=== PATIENT | male | born 1965 | race African-American/Black ===

== ENCOUNTER 2017-08-16 13:59 | Inpatient (IN) | payer MEDICARE, MEDICAID ==
[~2017-08-16] VITALS: Ht 190.5 cm; Wt 86.0 kg
[~2017-08-16 13:59] MED LIST: BENZ2TAB PO; FLUP10TA PO
[2017-08-16 14:19] VITALS: BP 128/59; PULSE 112; RESP 19; TEMP 98.3; O2SAT 97
[2017-08-16 16:01] LABS: AUTOMATED NEUTROPHIL # 7.3 TH/MM3 (1.8-7.7); BASOPHIL # 0.1 TH/MM3 (0-0.2); EOSINOPHIL # 0.2 TH/MM3 (0-0.4); EOSINOPHIL % 1.4 % (0.0-4.0); HEMATOCRIT 34.1 % (39.0-51.0); HEMOGLOBIN 12.3 GM/DL (13.0-17.0); LYMPHOCYTE # 1.8 TH/MM3 (1.0-4.8); MEAN CELL VOLUME 80.3 FL (80.0-100.0); MEAN PLATELET VOLUME 7.8 FL (7.0-11.0); MONO % 10.1 % (0.0-8.0); MONOCYTE # 1.1 TH/MM3 (0-0.9); NEUT % 70.5 % (16.0-70.0); PLATELET COUNT 301 TH/MM3 (150-450); RED BLOOD COUNT 4.25 MIL/MM3 (4.50-5.90); RED CELL DISTRIBUTION WIDTH 16.1 % (11.6-17.2); WHITE BLOOD COUNT 10.4 TH/MM3 (4.0-11.0)
[2017-08-16 16:08] LABS: ALBUMIN 3.1 GM/DL (3.4-5.0); ALT (GPT) 17 U/L (12-78); AST (GOT) 12 U/L (15-37); BICARBONATE 26.7 MEQ/L (21.0-32.0); BLOOD UREA NITROGEN 3 MG/DL (7-18); CALCIUM 8.5 MG/DL (8.5-10.1); CHLORIDE 99 MEQ/L (98-107); CREATININE 0.82 MG/DL (0.60-1.30); GLOMERULAR FILTRATION RATE 120 ML/MIN (>89); GLUCOSE,RANDOM 175 MG/DL (74-106); SODIUM (NA) 134 MEQ/L (136-145)
[2017-08-16 16:10] LABS: ALKALINE PHOSPHATASE 102 U/L (45-117); TOTAL BILIRUBIN ADULT 0.2 MG/DL (0.2-1.0); TOTAL PROTEIN 8.4 GM/DL (6.4-8.2)
[2017-08-16 16:14] LABS: MEAN CORPUSCULAR HGB CONC 36.1 % (32.0-36.0)
[2017-08-16] MEDS ORDERED: VANCOMYCIN INJ 1,000 MG in SODIUM CHLOR 0.9% 250 ML INJ 250 ML IV ONE (17:00)
[2017-08-16] MEDS ORDERED: PIPERACIL-TAZO 4.5 GM PREMIX 100 ML IV ONE (17:00)
--- NOTE | 2017-08-16 17:10 | PD ---
HPI Chief Complaint: Skin Problem Time Seen by Provider: 16:42 Travel History International Travel<30 days: No Contact w/Intl Traveler<30days: No Traveled to known affect area: No History of Present Illness HPI The patient is a 51-year-old [place] male who presents emergency department for right foot drainage, foul smell, and pain. The patient states her last 3 weeks he's had some sores on the bottom of the right foot which have been draining, now producing a foul smell. The patient does have a history of schizophrenia, recently walked the [place], [place]. He then walked back to the [place], [place]. He denies any history of diabetes, gangrene, diabetic foot ulcers, or peripheral last carotid disease. He does note decreased hair growth to legs, but states that has been chronic since childhood. He denies any previous history of sores on the right foot, does have a previous history of sore the left foot which healed on its own. Symptoms are moderate. There are currently no alleviating factors. He denies any fever, chills, or sweats. PFSH Past Medical History Blood Disorders: No Anxiety: Yes Depression: Yes Cancer: No Cardiovascular Problems: Yes Diabetes: Yes Endocrine: Yes Genitourinary: No Hypertension: Yes Immune Disorder: No Musculoskeletal: No Neurologic: No Psychiatric: Yes (paranoid schitzophrenia) Respiratory: No Past Surgical History Other Surgery: Yes (knee surgery) Social History Alcohol Use: No Tobacco Use: Yes (ppd) Substance Use: No Allergies-Medications (Allergen,Severity, Reaction): Coded Allergies: No Known Allergies (Verified Allergy, Unknown, 08/16/17) Reported Meds & Prescriptions Reported Meds & Active Scripts Active Reported Benztropine (Benztropine Mesylate) 0.5 Mg Tab 2 Mg PO BID Fluphenazine (Fluphenazine HCl) 10 Mg Tab 10 Mg PO HS Review of Systems Except as stated in HPI: all other systems reviewed are Neg General / Constitutional: No: Fever, Chills HENT: No: Lightheadedness Cardiovascular: No: Chest Pain or Discomfort Respiratory: No: Shortness of Breath Gastrointestinal: No: Nausea, Vomiting, Abdominal Pain Genitourinary: No: Dysuria Musculoskeletal: Positive: Pain Skin: Positive Other Neurologic: No: Paresthesia, Sensory Disturbance Psychiatric: Positive: Disorder of Thought, No: Substance Abuse Hematologic/Lymphatic: No: Other (denies any history diabetes) Physical Exam Narrative GENERAL: Awake, alert, pleasant 51-year-old male who appears his stated age and is in no acute respiratory distress. SKIN: Focused skin assessment warm/dry. HEAD: Atraumatic. Normocephalic. EYES: No injection or drainage. ENT: No nasal bleeding or discharge. Mucous membranes pink and moist. NECK: Trachea midline. No JVD. CARDIOVASCULAR: Regular, tachycardic with a heart rate of 110. RESPIRATORY: No accessory muscle use. Clear to auscultation. Breath sounds equal bilaterally. GASTROINTESTINAL: Abdomen soft, non-tender, nondistended. MUSCULOSKELETAL: The plantar surface the right foot has some demarcated skin with foul smell. There is a circular lesion over the plantar surface the right great foot, proximal to the right great toe as well as some mild skin changes to the distal aspect of the second, third, and fourth toe. This appears to be wet gangrene. Patient has great Doppler pulses of the dorsalis and posterior tibial pulse on the right foot. NEUROLOGICAL: Awake and alert. No obvious cranial nerve deficits. Motor grossly within normal limits. Normal speech. Nonfocal. Oriented 4. PSYCHIATRIC: Appropriate mood and affect; insight and judgment normal. Data Data Last Documented VS Vital Signs Date Time Temp Pulse Resp B/P (MAP) Pulse Ox O2 Delivery O2 Flow Rate FiO2 08/16/17 14:19 98.3 112 19 128/59 (82) 97 Orders Orders Complete Blood Count With Diff (08/16/17 15:04) Comprehensive Metabolic Panel (08/16/17 15:04) Urinalysis - C+S If Indicated (08/16/17 15:04) Lactic Acid Sepsis Protocol (08/16/17 15:04) Blood Culture (08/16/17 15:04) Foot, Limited (2vws) (08/16/17 ) Piperacil-Tazo 4.5 Gm Premix (Zosyn 4.5 (08/16/17 17:00) Vancomycin Inj (Vancomycin Inj) (08/16/17 17:00) Admit To Inpatient (08/16/17 ) Code Status (08/16/17 17:01) Vital Signs (Adult) Q4H (08/16/17 17:01) Activity Oob Ad Anali (08/16/17 17:01) Vending Machine Collector / Telemetry .CONTINUOUS (08/16/17 17:) Intake + Output THIERNO.QSHIFT (08/16/17 17:01) Notify Dr: Other (08/16/17 17:01) Diet 1800 Ada Cons Carb (08/16/17 Dinner) Sodium Chlor 0.9% 1000 Ml Inj (Ns 1000 M (08/16/17 17:01) Sodium Chloride 0.9% Flush (Ns Flush) (08/16/17 17:15) Sodium Chloride 0.9% Flush (Ns Flush) (08/16/17 21:00) Acetaminophen (Tylenol) (08/16/17 17:15) Ondansetron Inj (Zofran Inj) (08/16/17 17:15) Basic Metabolic Panel (Bmp) (08/17/17 06:00) Complete Blood Count With Diff (08/17/17 06:00) Prothrombin Time / Inr (Pt) (08/17/17 06:00) Blood Culture (08/16/17 17:01) Case Management Consult (08/16/17 17:01) Naloxone Inj (Narcan Inj) (08/16/17 17:15) Sennosides (Senokot) (08/16/17 17:15) Bisacodyl Supp (Dulcolax Supp) (08/16/17 17:15) Lactulose Liq (Lactulose Liq) (08/16/17 17:15) Inpatient Certification (08/16/17 ) Vancomycin Consult Pharmacy (Vancomycin (08/16/17 17:15) Piperacil-Tazo 3.375 Gm Premix (Zosyn 3. (08/16/17 23:00) Consult Podiatry (08/16/17 ) Thyroid Stimulating Hormone (08/16/17 17:05) Free Thyroxine (T4) (08/16/17 17:05) Hemoglobin (Hgb) A1c (08/16/17 17:05) Lipid Profile (08/16/17 17:05) Vitamin B12 (08/16/17 17:05) Vancomycin Inj (Vancomycin Inj) (08/16/17 18:00) Vancomycin Inj (Vancomycin Inj) (08/17/17 06:00) Misc. Nursing Information (08/18/17 05:45) Vancomycin Trough (08/18/17 05:45) Admit Order (Ed Use Only) (08/16/17 17:39) Labs Laboratory Tests Test 08/16/17 15:20 08/16/17 17:25 White Blood Count 10.4 TH/MM3 Red Blood Count 4.25 MIL/MM3 Hemoglobin 12.3 GM/DL Hematocrit 34.1 % Mean Corpuscular Volume 80.3 FL Mean Corpuscular Hemoglobin 29.0 PG Mean Corpuscular Hemoglobin Concent 36.1 % Red Cell Distribution Width 16.1 % Platelet Count 301 TH/MM3 Mean Platelet Volume 7.8 FL Neutrophils (%) (Auto) 70.5 % Lymphocytes (%) (Auto) 17.0 % Monocytes (%) (Auto) 10.1 % Eosinophils (%) (Auto) 1.4 % Basophils (%) (Auto) 1.0 % Neutrophils # (Auto) 7.3 TH/MM3 Lymphocytes # (Auto) 1.8 TH/MM3 Monocytes # (Auto) 1.1 TH/MM3 Eosinophils # (Auto) 0.2 TH/MM3 Basophils # (Auto) 0.1 TH/MM3 CBC Comment DIFF FINAL Differential Comment Blood Urea Nitrogen 3 MG/DL Creatinine 0.82 MG/DL Random Glucose 175 MG/DL Total Protein 8.4 GM/DL Albumin 3.1 GM/DL Calcium Level 8.5 MG/DL Alkaline Phosphatase 102 U/L Aspartate Amino Transf (AST/SGOT) 12 U/L Alanine Aminotransferase (ALT/SGPT) 17 U/L Total Bilirubin 0.2 MG/DL Sodium Level 134 MEQ/L Potassium Level 3.2 MEQ/L Chloride Level 99 MEQ/L Carbon Dioxide Level 26.7 MEQ/L Anion Gap 8 MEQ/L Estimat Glomerular Filtration Rate 120 ML/MIN Lactic Acid Level 1.7 mmol/L [facility] Medical Decision Making Medical Screen Exam Complete: Yes Emergency Medical Condition: Yes Medical Record Reviewed: Yes Interpretation(s) Laboratory Tests Test 08/16/17 15:20 White Blood Count 10.4 TH/MM3 Red Blood Count 4.25 MIL/MM3 Hemoglobin 12.3 GM/DL Hematocrit 34.1 % Mean Corpuscular Volume 80.3 FL Mean Corpuscular Hemoglobin 29.0 PG Mean Corpuscular Hemoglobin Concent 36.1 % Red Cell Distribution Width 16.1 % Platelet Count 301 TH/MM3 Mean Platelet Volume 7.8 FL Neutrophils (%) (Auto) 70.5 % Lymphocytes (%) (Auto) 17.0 % Monocytes (%) (Auto) 10.1 % Eosinophils (%) (Auto) 1.4 % Basophils (%) (Auto) 1.0 % Neutrophils # (Auto) 7.3 TH/MM3 Lymphocytes # (Auto) 1.8 TH/MM3 Monocytes # (Auto) 1.1 TH/MM3 Eosinophils # (Auto) 0.2 TH/MM3 Basophils # (Auto) 0.1 TH/MM3 CBC Comment DIFF FINAL Differential Comment Blood Urea Nitrogen 3 MG/DL Creatinine 0.82 MG/DL Random Glucose 175 MG/DL Total Protein 8.4 GM/DL Albumin 3.1 GM/DL Calcium Level 8.5 MG/DL Alkaline Phosphatase 102 U/L Aspartate Amino Transf (AST/SGOT) 12 U/L Alanine Aminotransferase (ALT/SGPT) 17 U/L Total Bilirubin 0.2 MG/DL Sodium Level 134 MEQ/L Potassium Level 3.2 MEQ/L Chloride Level 99 MEQ/L Carbon Dioxide Level 26.7 MEQ/L Anion Gap 8 MEQ/L Estimat Glomerular Filtration Rate 120 ML/MIN Lactic Acid Level 1.7 mmol/L x-ray of the right foot reveals soft tissue swelling with pes planus deformity and osteoarthritic changes Differential Diagnosis Differential diagnosis includes leg gangrene, dry gangrene, osteomyelitis, foreign body, diabetic foot ulcer. Narrative Course IV was established, labs are drawn and sent, the patient was placed on cardiac telemetry monitoring and continuous pulse oximetry. X-ray of the right foot was obtained. White count and lactic acid are unremarkable. Blood cultures were sent to lab. The patient's foot does smell, possible pseudomonas. The patient was administered Zosyn and vancomycin. The on-call medical team was paged for admission. The patient may have wet gangrene secondary to pseudomonas and may benefit from evaluation by podiatry. The patient's blood glucose on BMP was 176, appears patient does have underlying diabetes. He cannot recall the name of his schizophrenia medication. X-ray reveals soft tissue swelling and has plans deformity with arthritic changes. The patient has been admitted. Physician Communication Physician Communication I discussed the patient with Dr. Meek who agrees with admission. Diagnosis Primary Impression: Wet gangrene Additional Impression: Hyperglycemia Admitting Information Admitting Physician Requests: Admit Condition: Stable Galan,Get Z. MD Aug 16, 2017 17:10
[2017-08-16] MEDS ORDERED: ONDANSETRON HCL 4 MG/2 ML VIAL IVP PRN (17:15)
[2017-08-16] MEDS ORDERED: BISACODYL 10 MG SUPP RECTAL PRN (17:15)
[2017-08-16] MEDS ORDERED: ACETAMINOPHEN 325 MG TAB PO PRN (17:15)
[2017-08-16] MEDS ORDERED: LACTULOSE SYRUP 20 GM/30 ML CUP PO PRN (17:15)
[2017-08-16] MEDS ORDERED: Vancomycin Consult Pharmacy 1 EA OTHER SCH (17:15)
[2017-08-16] MEDS ORDERED: SODIUM CHLORIDE 0.9% FLUSH 10 ML FLUSH IV FLUSH PRN (17:15)
[2017-08-16] MEDS ORDERED: NALOXONE HCL 0.4 MG/ML AMP IV PUSH PRN (17:15)
[2017-08-16] MEDS ORDERED: SENNOSIDES 8.6 MG TAB PO PRN (17:15)
[2017-08-16] MEDS: SODIUM CHLOR 0.9% 1000 ML INJ 1,000 ML IV SCH (17:42)
[2017-08-16 17:46] VITALS: BP 134/84; PULSE 103; RESP 20; O2SAT 100
--- NOTE | 2017-08-16 17:48 | RADRPT ---
EXAM DATE/TIME: 08/16/2017 17:16 [facility] COMPARISON: No previous studies available for comparison. INDICATIONS : Skin complaint- Foot is rotting. MEDICAL HISTORY : Diabetes mellitus type II. Hypertension SURGICAL HISTORY : None. ENCOUNTER: Initial ACUITY: 3 weeks PAIN SCORE: 10/10 LOCATION: Right Foot. FINDINGS: Pes planus deformity present. There is moderate arthritic change in the midfoot with. No acute fractu re or dislocation. No bony destructive changes are identified. There is soft tissue swelling of the f oot. CONCLUSION: 1. Soft tissue swelling with pes planus deformity and moderate arthritic change of the midfoot. Brody Vargas MD on August 16, 2017 at 17:44 Board Certified Radiologist. This report was verified electronically.
[2017-08-16] MEDS ORDERED: BENZ0.5T PO (17:55)
[2017-08-16] MEDS ORDERED: VANCOMYCIN INJ 2,500 MG in SODIUM CHLORID 0.9% 500 ML INJ 500 ML IV ONE (18:00)
[2017-08-16 18:17] LABS: CHOLESTEROL 156 MG/DL (120-200); TRIGLYCERIDES 112 MG/DL (42-150)
[2017-08-16 18:42] LABS: CHOLESTEROL/ HDL RATIO 4.21 RATIO; LDL CHOLESTEROL 97 MG/DL (0-99)
[2017-08-16] MEDS ORDERED: POTASSIUM CHLORIDE 20 MEQ CONTROLLED RELEASE TAB PO ONE ×2 (18:45→22:00)
--- NOTE | 2017-08-16 18:54 | HHI.HP ---
[facility] No Primary Care Physician Admission Diagnosis wet gangrene right foot, hyperglycemia Diagnoses: Chief Complaint: Foot ulcer Travel History International Travel<30 Days: No Contact w/Intl Traveler <30 Da: No Traveled to Known Affected Are: No Sepsis Criteria Sepsis Criteria (SIRS+source): Infect source susp/known History of Present Illness This is a pleasant 51 y/o Male who came to Emergency room with right foot drainage, foul smell and pain, The patient states her last 3 weeks he's had some sores on the bottom of the right foot which have been draining, now producing a foul smell. The patient does have a history of schizophrenia, recently walked the [place], [place]. He then walked back to the [place], [place]. He denies any history of diabetes, gangrene, diabetic foot ulcers, or peripheral last carotid disease. He does note decreased hair growth to legs, but states that has been chronic since childhood. He denies any previous history of sores on the right foot, does have a previous history of sore the left foot which healed on its own. Review of Systems Constitutional: DENIES: Fever, Chills, Change in appetite Endocrine: DENIES: Heat/cold intolerance Eyes: DENIES: Blurred vision, Eye pain Except as stated in HPI: all other systems reviewed are Neg Past Family Social History Past Medical History Anxiety disorder Depression Hypertension Schizophrenia DM II Past Surgical History Knee surgery Reported Medications Reported Meds & Active Scripts Active Reported Benztropine (Benztropine Mesylate) 0.5 Mg Tab 2 Mg PO BID Fluphenazine (Fluphenazine HCl) 10 Mg Tab 10 Mg PO HS Allergies: Coded Allergies: No Known Allergies (Verified Allergy, Unknown, 08/16/17) Active Ordered Medications Current Medications Medications (Trade) Dose Ordered Sig/Stanley Route Start Time Stop Time Status Last Admin Sodium Chloride 1,000 ml @ 100 mls/hr Q10H IV 08/16/17 17:01 08/16/17 17:42 (NS Flush) 2 ml UNSCH PRN IV FLUSH 3/18/18 17:15 08/16/17 17:42 (NS Flush) 2 ml BID IV FLUSH 08/16/17 21:00 (Tylenol) 650 mg Q4H PRN PO 08/16/17 17:15 (Zofran Inj) 4 mg Q6H PRN IVP 08/16/17 17:15 (Narcan Inj) 0.4 mg UNSCH PRN IV PUSH 08/16/17 17:15 (Senokot) 17.2 mg Q12H PRN PO 08/16/17 17:15 (Dulcolax Supp) 10 mg DAILY PRN RECTAL 08/16/17 17:15 (Lactulose Liq) 30 ml DAILY PRN PO 08/16/17 17:15 Pharmacy Profile Note 0 ml @ 0 mls/hr UNSCH OTHER 08/16/17 17:15 Piperacillin Sod/ Tazobactam Sod 50 ml @ 100 mls/hr Q6H IV 08/16/17 23:00 Vancomycin HCl 2000 mg/Sodium Chloride 520 ml @ 260 mls/hr Q12H IV 08/17/17 06:00 Miscellaneous Information SPECIFIC LAB TO BE [facility]... ONCE ONCE .XX 08/18/17 05:45 08/18/17 05:46 Family History Asked and denies Social History Tobacco dependence one pack daily denies other toxic habits. Physical Exam Vital Signs Vital Signs Date Time Temp Pulse Resp B/P (MAP) Pulse Ox O2 Delivery O2 Flow Rate FiO2 08/16/17 17:46 103 20 134/84 (101) 100 08/16/17 14:19 98.3 112 19 128/59 (82) 97 Physical Exam GENERAL: Awake, alert, pleasant 51-year-old male who appears his stated age and is in no acute respiratory distress. SKIN: Focused skin assessment warm/dry. HEAD: Atraumatic. Normocephalic. EYES: No injection or drainage. ENT: No nasal bleeding or discharge. Mucous membranes pink and moist. NECK: Trachea midline. No JVD. CARDIOVASCULAR: Regular, tachycardic with a heart rate of 110. RESPIRATORY: No accessory muscle use. Clear to auscultation. Breath sounds equal bilaterally. GASTROINTESTINAL: Abdomen soft, non-tender, nondistended. MUSCULOSKELETAL: The plantar surface the right foot has some demarcated skin with foul smell. There is a circular lesion over the plantar surface the right great foot, proximal to the right great toe as well as some mild skin changes to the distal aspect of the second, third, and fourth toe. This appears to be wet gangrene. Patient has great Doppler pulses of the dorsalis and posterior tibial pulse on the right foot. NEUROLOGICAL: Awake and alert. No obvious cranial nerve deficits. Motor grossly within normal limits. Normal speech. Nonfocal. Oriented 4. PSYCHIATRIC: Appropriate mood and affect; insight and judgment normal. Laboratory Laboratory Tests Test 08/16/17 15:20 08/16/17 17:25 White Blood Count 10.4 Red Blood Count 4.25 Hemoglobin 12.3 Hematocrit 34.1 Mean Corpuscular Volume 80.3 Mean Corpuscular Hemoglobin 29.0 Mean Corpuscular Hemoglobin Concent 36.1 Red Cell Distribution Width 16.1 Platelet Count 301 Mean Platelet Volume 7.8 Neutrophils (%) (Auto) 70.5 Lymphocytes (%) (Auto) 17.0 Monocytes (%) (Auto) 10.1 Eosinophils (%) (Auto) 1.4 Basophils (%) (Auto) 1.0 Neutrophils # (Auto) 7.3 Lymphocytes # (Auto) 1.8 Monocytes # (Auto) 1.1 Eosinophils # (Auto) 0.2 Basophils # (Auto) 0.1 CBC Comment DIFF FINAL Differential Comment Blood Urea Nitrogen 3 Creatinine 0.82 Random Glucose 175 Total Protein 8.4 Albumin 3.1 Calcium Level 8.5 Alkaline Phosphatase 102 Aspartate Amino Transf (AST/SGOT) 12 Alanine Aminotransferase (ALT/SGPT) 17 Total Bilirubin 0.2 Sodium Level 134 Potassium Level 3.2 Chloride Level 99 Carbon Dioxide Level 26.7 Anion Gap 8 Estimat Glomerular Filtration Rate 120 Lactic Acid Level 1.7 Triglycerides Level 112 Cholesterol Level 156 Date/Time Source Procedure Growth Status 08/16/17 17:25 Blood Peripheral Aerobic Blood Culture Pending Received 08/16/17 17:25 Blood Peripheral Anaerobic Blood Culture Pending Received Result Diagram: 08/16/17 1520 08/16/17 1520 Caprini VTE Risk Assessment Caprini VTE Risk Assessment: Mod/High Risk (score >= 2) Caprini Risk Assessment Model Point Value = 1 Point Value = 2 Point Value = 3 Point Value = 5 Age 41-60 Minor surgery BMI > 25 kg/m2 Swollen legs Varicose veins or History of unexplained or recurrent spontaneous Oral contraceptives or hormone replacement Sepsis (< 1 month) Serious lung disease, including pneumonia (< 1 month) Abnormal pulmonary function Acute myocardial infarction Congestive heart failure (< 1 month) History of inflammatory bowel disease Medical patient at bed rest Age 61-74 Arthroscopic surgery Major open surgery (> 45 min) Laparoscopic surgery (> 45 min) Malignancy Confined to bed (> 72 hours) Immobilizing plaster cast Central venous access Age >= 75 History of VTE Family history of VTE Factor V Leiden Prothrombin [id number] Lupus anticoagulant Anticardiolipin antibodies Elevated serum homocysteine Heparin-induced thrombocytopenia Other congenital or acquired thrombophilia Stroke (< 1 month) Elective arthroplasty Hip, pelvis, or leg fracture Acute spinal cord injury (< 1 month) Prophylaxis Regimen Total Risk Factor Score Risk Level Prophylaxis Regimen 0-1 Low Early ambulation 2 Moderate Order ONE of the following: *Sequential Compression Device (SCD) *Heparin 5000 units SQ BID 3-4 Higher Order ONE of the following medications: *Heparin 5000 units SQ TID *Enoxaparin/Lovenox 40 mg SQ daily (WT < 150 kg, CrCl > 30 mL/min) *Enoxaparin/Lovenox 30 mg SQ daily (WT < 150 kg, CrCl > 10-29 mL/min) *Enoxaparin/Lovenox 30 mg SQ BID (WT < 150 kg, CrCl > 30 mL/min) AND/OR *Sequential Compression Device (SCD) 5 or more Highest Order ONE of the following medications: *Heparin 5000 units SQ TID (Preferred with Epidurals) *Enoxaparin/Lovenox 40 mg SQ daily (WT < 150 kg, CrCl > 30 mL/min) *Enoxaparin/Lovenox 30 mg SQ daily (WT < 150 kg, CrCl > 10-29 mL/min) *Enoxaparin/Lovenox 30 mg SQ BID (WT < 150 kg, CrCl > 30 mL/min) AND *Sequential Compression Device (SCD) Assessment and Plan Assessment and Plan 1. right foot with wet gangrene and plantar ulcer with foul smell x-ray of the right foot reveals soft tissue swelling with pes planus deformity and osteoarthritic changes, Lactic acid unremarkable, following blood cultures, continue Zosyn and Vancomycin Podiatry consult. 2. Anxiety disorder/depression/Schizophrenia continue home medicines 3. Hypertension on no home medicines 4. DM II the patient insist he is not diabetic and he is diabetic asked for hemoglobin A1C sliding scale, ADA diet 5. electrolyte derangement replaced and following DVT prophylaxis with Lovenox Code Status Full code. Discussed Condition With Get Galan MD Physician Certification 2 Midnight Certification Type: Admission for Inpatient Services Order for Inpatient Services The services are ordered in accordance with Medicare regulations or non- Medicare payer requirements, as applicable. In the case of services not specified as inpatient-only, they are appropriately provided as inpatient services in accordance with the 2-midnight benchmark. Estimated LOS (days): 3 days is the estimated time the patient will need to remain in the hospital, assuming treatment plan goals are met and no additional complications. Post-Hospital Plan: Not yet determined Marlon Kline MD Aug 16, 2017 18:54
[2017-08-16] MEDS: SODIUM CHLORIDE 0.9% FLUSH 10 ML FLUSH IV FLUSH SCH (21:00)
[2017-08-16] MEDS: INSULIN ASPART SUPPLEMENTAL SCALE SQ SCH (21:00)
[2017-08-16] MEDS: ENOXAPARIN SODIUM 40 MG/0.4 ML SYRINGE SQ SCH (21:36)
[2017-08-17] VITALS (10 sets, daily range): BP systolic 120–165; BP diastolic 69–95; PULSE 82–100; RESP 16–20; TEMP 95.8–99.1; O2SAT 96–100
[2017-08-17] MEDS: PIPERACIL-TAZO 3.375 GM PREMIX 50 ML IV SCH ×4 (00:03→16:53)
[2017-08-17] MEDS: SODIUM CHLOR 0.9% 1000 ML INJ 1,000 ML IV SCH (03:01)
[2017-08-17] MEDS: VANCOMYCIN INJ 2,000 MG in SODIUM CHLORID 0.9% 500 ML INJ 500 ML IV SCH ×2 (05:32→17:33)
[2017-08-17] MEDS: INSULIN ASPART SUPPLEMENTAL SCALE SQ SCH ×5 (08:00→21:00)
[2017-08-17] MEDS: SODIUM CHLORIDE 0.9% FLUSH 10 ML FLUSH IV FLUSH SCH ×2 (09:00→22:25)
[2017-08-17] MEDS ORDERED: ENALAPRILAT 1.25 MG/ML VIAL IV PUSH PRN (09:30)
[2017-08-17] MEDS ORDERED: cloNIDine HCL 0.1 MG TAB PO PRN (09:30)
[2017-08-17] MEDS: BENZTROPINE MESYLATE 2 MG TAB PO SCH ×2 (10:06→22:25)
[2017-08-17 10:45] LABS: AUTOMATED NEUTROPHIL # 4.6 TH/MM3 (1.8-7.7); BASOPHIL # 0.1 TH/MM3 (0-0.2); EOSINOPHIL # 0.1 TH/MM3 (0-0.4); EOSINOPHIL % 1.9 % (0.0-4.0); HEMATOCRIT 34.9 % (39.0-51.0); HEMOGLOBIN 11.9 GM/DL (13.0-17.0); LYMPH % 19.9 % (9.0-44.0); LYMPHOCYTE # 1.3 TH/MM3 (1.0-4.8); MEAN CELL VOLUME 80.3 FL (80.0-100.0); MEAN CORPUSCULAR HEMOGLOBIN 27.5 PG (27.0-34.0); MEAN CORPUSCULAR HGB CONC 34.2 % (32.0-36.0); MEAN PLATELET VOLUME 7.6 FL (7.0-11.0); MONO % 6.8 % (0.0-8.0); MONOCYTE # 0.4 TH/MM3 (0-0.9); NEUT % 70.4 % (16.0-70.0); PLATELET COUNT 278 TH/MM3 (150-450); RED BLOOD COUNT 4.35 MIL/MM3 (4.50-5.90); RED CELL DISTRIBUTION WIDTH 16.5 % (11.6-17.2); WHITE BLOOD COUNT 6.5 TH/MM3 (4.0-11.0)
[2017-08-17 10:46] LABS: INTERNATIONAL NORMALIZED RATIO 1.1 RATIO; PROTHROMBIN TIME - PATIENT 10.9 SEC (9.8-11.6)
[2017-08-17] MEDS: NS + KCL 20 MEQ INJ 1,000 ML IV SCH ×3 (11:00→14:13)
[2017-08-17 11:07] LABS: BICARBONATE 30.2 MEQ/L (21.0-32.0); CALCIUM 8.4 MG/DL (8.5-10.1); CREATININE 0.83 MG/DL (0.60-1.30); MAGNESIUM 2.2 MG/DL (1.5-2.5); PHOSPHORUS 3.3 MG/DL (2.5-4.9)
--- NOTE | 2017-08-17 12:21 | HHI.PR ---
Subjective Remarks Follow-up foot infection. Complaining of pain 2 out of 10. Denies being diabetic and hypertensive. Discussed with nursing Objective Vitals Vital Signs Date Time Temp Pulse Resp B/P (MAP) Pulse Ox O2 Delivery O2 Flow Rate FiO2 08/17/17 12:05 98.9 89 20 142/80 (100) 96 08/17/17 08:43 98.3 82 20 165/93 (117) 97 08/17/17 07:46 98.3 82 20 165/93 (117) 97 08/17/17 04:27 Room Air 08/17/17 04:22 98.4 100 17 133/95 (108) 98 08/17/17 01:56 89 08/17/17 00:05 99.1 16 133/81 (98) 98 Room Air 08/17/17 00:00 98.7 99 16 139/86 (103) 96 08/16/17 17:46 103 20 134/84 (101) 100 08/16/17 14:19 98.3 112 19 128/59 (82) 97 I/O 08/16/17 08/16/17 08/16/17 08/17/17 08/17/17 08/17/17 07:00 15:00 23:00 07:00 15:00 23:00 Intake Total 150 ml 50 ml Output Total 600 ml 1000 ml Balance -450 ml -950 ml Intake IV Total 150 ml 50 ml Output Urine Total 600 ml 1000 ml Result Diagram: 08/17/17 1015 08/17/17 1015 Imaging Last Impressions Foot X-Ray 08/16/17 0000 Signed Impressions: Service Date/Time: Wednesday, August 16, 2017 17:16 - CONCLUSION: 1. Soft tissue swelling with pes planus deformity and moderate arthritic change of the midfoot. Brody Vargas MD Objective Remarks GENERAL: Awake, alert, pleasant 51-year-old male who appears his stated age and is in no acute respiratory distress. SKIN: Focused skin assessment warm/dry. CARDIOVASCULAR: Regular rate and rhythm RESPIRATORY: No accessory muscle use. Clear to auscultation. Breath sounds equal bilaterally. GASTROINTESTINAL: Abdomen soft, non-tender, nondistended. MUSCULOSKELETAL: The plantar surface the right foot has some demarcated skin with foul smell. There is a circular lesion over the plantar surface the right great foot, proximal to the right great toe as well as some mild skin changes to the distal aspect of the second, third, and fourth toe. This appears to be wet gangrene. Patient has great Doppler pulses of the dorsalis and posterior tibial pulse on the right foot. NEUROLOGICAL: Awake and alert. No obvious cranial nerve deficits. Motor grossly within normal limits. Normal speech. Nonfocal. Oriented 4. PSYCHIATRIC: Appropriate mood and affect; insight and judgment normal. Procedures none A/P Assessment and Plan 1. Right foot with wet gangrene and plantar ulcer with foul smell x-ray of the right foot reveals soft tissue swelling with pes planus deformity and osteoarthritic changes. This could be DFI continue Zosyn and Vancomycin and pain management. Wound care Podiatry consulted. 2. Anxiety disorder/depression/Schizophrenia continue home medicines 3. Hypertension on no home medicines. Monitor on clonidine and IV Vasotec 4. DM II the patient insist he is not diabetic. He is hyperglycemic follow-up hemoglobin A1C and sliding scale, ADA diet 5. DVT prophylaxis with LoveDemond Hill MD Aug 17, 2017 12:21
[2017-08-17 14:12] LABS: HEMOGLOBIN A1C 6.8 % (4.3-6.0)
--- NOTE | 2017-08-17 20:53 | PD.CONS ---
History of Present Illness Service Foot and ankle surgery/podiatry Consult Requested By Reason for Consult Right foot ulcerations Primary Care Physician No Primary Care Physician Diagnoses: History of Present Illness Podiatry consulted for this 51-year-old male who presented to the emergency room with right foot ulcerations and associated malodor, pain, and drainage. As per ED notes patient does have a history of schizophrenia he was recently vacation out of town. Apparently per ED notes. Does report history of sores/ ulceration to bilateral foot. Denies any nausea, vomiting, fevers. Review of Systems Constitutional: DENIES: Fatigue, Fever Endocrine: DENIES: Heat/cold intolerance Eyes: DENIES: Blurred vision Ears, nose, mouth, throat: DENIES: Tinnitus, Hearing loss Respiratory: DENIES: Cough, Shortness of breath Cardiovascular: DENIES: Chest pain, Palpitations, Lower Extremity Edema Gastrointestinal: DENIES: Abdominal pain Musculoskeletal: DENIES: Muscle aches, Stiffness Integumentary: DENIES: Rash Psychiatric: DENIES: Anxiety Past Family Social History Allergies: Coded Allergies: No Known Allergies (Verified Allergy, Unknown, 08/16/17) Past Medical History As per HPI, patient denies any past medical history other than schizophrenia Active Ordered Medications Current Medications Medications (Trade) Dose Ordered Sig/Stanley Route Start Time Stop Time Status Last Admin (NS Flush) 2 ml UNSCH PRN IV FLUSH 08/16/17 17:15 08/16/17 17:42 (NS Flush) 2 ml BID IV FLUSH 08/16/17 21:00 (Tylenol) 650 mg Q4H PRN PO 08/16/17 17:15 (Zofran Inj) 4 mg Q6H PRN IVP 08/16/17 17:15 (Narcan Inj) 0.4 mg UNSCH PRN IV PUSH 08/16/17 17:15 (Senokot) 17.2 mg Q12H PRN PO 08/16/17 17:15 (Dulcolax Supp) 10 mg DAILY PRN RECTAL 08/16/17 17:15 (Lactulose Liq) 30 ml DAILY PRN PO 08/16/17 17:15 Pharmacy Profile Note 0 ml @ 0 mls/hr UNSCH OTHER 08/16/17 17:15 Piperacillin Sod/ Tazobactam Sod 50 ml @ 100 mls/hr Q6H IV 08/16/17 23:00 08/17/17 16:53 Vancomycin HCl 2000 mg/Sodium Chloride 520 ml @ 260 mls/hr Q12H IV 08/17/17 06:00 08/17/17 17:33 Miscellaneous Information SPECIFIC LAB TO BE TRINITY... ONCE ONCE .XX 08/18/17 05:45 08/18/17 05:46 (Lovenox Inj) 40 mg Q24H SQ 08/16/17 20:00 08/16/17 21:36 (NovoLOG SUPPLEMENTAL SCALE) 1 ACHS SLIDING SCALE SQ 08/16/17 21:00 Potassium Chloride/Sodium Chloride 1,000 ml @ 100 mls/hr Q10H IV 08/17/17 09:30 08/17/17 11:00 (Cogentin) 2 mg BID PO 08/17/17 09:30 08/17/17 10:06 (Prolixin) 10 mg HS PO 08/17/17 21:00 (Vasotec Inj) 1.25 mg Q6H PRN IV PUSH 08/17/17 09:30 (Catapres) 0.1 mg Q6H PRN PO 08/17/17 09:30 (Santyl Oint) 1 applic DAILY TOPICAL 08/18/17 09:00 UNV Physical Exam Vital Signs Vital Signs Date Time Temp Pulse Resp B/P (MAP) Pulse Ox O2 Delivery O2 Flow Rate FiO2 08/17/17 15:00 95.8 84 18 160/82 (108) 96 08/17/17 12:05 98.9 89 20 142/80 (100) 96 08/17/17 08:43 98.3 82 20 165/93 (117) 97 08/17/17 07:46 98.3 82 20 165/93 (117) 97 08/17/17 04:27 Room Air 08/17/17 04:22 98.4 100 17 133/95 (108) 98 08/17/17 01:56 89 08/17/17 00:05 99.1 16 133/81 (98) 98 Room Air 08/17/17 00:00 98.7 99 16 139/86 (103) 96 Physical Exam GENERAL: This is a well-nourished, well-developed patient, in no apparent distress. SKIN: Left hallux and second digit ulceration HEAD: Atraumatic. EYES: Pupils equal round and reactive. ENT: Airway patent. NECK: Trachea midline. RESPIRATORY: Nonlabored breathing. MUSCULOSKELETAL:. Negative Homans sign bilaterally. NEUROLOGICAL: Awake and alert. Normal speech. Lower extremity physical exam: Vascular: Dorsalis pedis diminished, posterior tibial nonpalpable. Capillary refill time within normal limits to digits 5 bilateral foot. Edema present mildly to right foot. Neuro: Gross sensation intact to bilateral lower extremity. Pinpoint sensation decreased bilateral. No hyperalgesia noted to bilateral lower extremity Dermatology: Normal temperature and turgor to bilateral lower extremity. Right foot plantar hallux ulceration noted with fibro-granular base, hyperkeratotic skin edges, serous drainage, probe to bone, no exposed bone or tendon. Right foot submetatarsal 2 ulceration noted with fibro-granular base hyperkeratotic borders serous drainage, no probe to bone, and no exposed bone or tendon. Erythema noted to right foot. Positive malodor noted to right foot. Interdigital maceration noted to all interspaces of the right foot. Left foot lateral fifth metatarsal head fissure noted with hyperkeratotic borders, negative probe to bone, negative drainage, no acute signs of infection. Musculoskeletal: No tenderness to palpation to bilateral foot. Hammertoes noted to digits 2-5 to bilateral foot. Laboratory Laboratory Tests Test 08/17/17 10:15 White Blood Count 6.5 Red Blood Count 4.35 Hemoglobin 11.9 Hematocrit 34.9 Mean Corpuscular Volume 80.3 Mean Corpuscular Hemoglobin 27.5 Mean Corpuscular Hemoglobin Concent 34.2 Red Cell Distribution Width 16.5 Platelet Count 278 Mean Platelet Volume 7.6 Neutrophils (%) (Auto) 70.4 Lymphocytes (%) (Auto) 19.9 Monocytes (%) (Auto) 6.8 Eosinophils (%) (Auto) 1.9 Basophils (%) (Auto) 1.0 Neutrophils # (Auto) 4.6 Lymphocytes # (Auto) 1.3 Monocytes # (Auto) 0.4 Eosinophils # (Auto) 0.1 Basophils # (Auto) 0.1 CBC Comment DIFF FINAL Differential Comment Prothrombin Time 10.9 Prothromb Time International Ratio 1.1 Blood Urea Nitrogen 4 Creatinine 0.83 Random Glucose 145 Calcium Level 8.4 Phosphorus Level 3.3 Magnesium Level 2.2 Sodium Level 138 Potassium Level 4.2 Chloride Level 103 Carbon Dioxide Level 30.2 Anion Gap 5 Estimat Glomerular Filtration Rate 118 Date/Time Source Procedure Growth Status 08/16/17 17:25 Blood Peripheral Aerobic Blood Culture - Preliminary NO GROWTH IN 1 DAY Resulted 08/16/17 17:25 Blood Peripheral Anaerobic Blood Culture - Preliminary NO GROWTH IN 1 DAY Resulted Result Diagram: 08/17/17 1015 08/17/17 1015 Imaging Last Impressions Foot X-Ray 08/16/17 0000 Signed Impressions: Service Date/Time: Wednesday, August 16, 2017 17:16 - CONCLUSION: 1. Soft tissue swelling with pes planus deformity and moderate arthritic change of the midfoot. Brody Vargas MD Assessment and Plan Assessment and Plan 51-year-old male with right foot plantar hallux ulceration and submetatarsal 2 ulceration; left lateral foot fissure Patient examined and evaluated with all questions answered Orders placed for bedside debridement to be performed tomorrow MRI ordered to rule out osteomyelitis ABIs ordered to rule out peripheral arterial disease as patient has diminished and nonpalpable pulses along with ischemic changes to bilateral foot No surgical intervention planned at this time Will obtain deep cultures at time of bedside debridement Santyl ordered to be applied to right foot ulcerations Tia Rawls DPM Aug 17, 2017 20:53
[2017-08-17] MEDS ORDERED: GADODIAMIDE PF 287 MG/ML 5 ML VIAL (for RAD MRI) IVCONTRAST ONE (21:57)
[2017-08-17] MEDS: ENOXAPARIN SODIUM 40 MG/0.4 ML SYRINGE SQ SCH (22:25)
--- NOTE | 2017-08-17 22:41 | RADRPT ---
EXAM DATE/TIME: 08/17/2017 21:29 [facility] COMPARISON: No previous studies available for comparison. INDICATIONS : Osteomyelitis. Great toe pain for one month on posterior side. CONTRAST: 19 cc Omniscan (gadodiamide) IV MEDICAL HISTORY : Diabetes mellitus type 2. Hypertension. SURGICAL HISTORY : None. ENCOUNTER: Initial ACUITY: 1 month PAIN SCORE: 10/10 LOCATION: Right Great toe. TECHNIQUE: Multiplanar, multisequence MRI examination was performed without contrast and after the intravenous a dministration of gadolinium. FINDINGS: There is marrow edema and enhancement in the distal portion of the proximal phalanx and distal phalan x of the great toe most characteristic of osteomyelitis. There is patchy bone edema throughout the bones of the right foot probably representing some stress r elated changes. There is no significant ankle joint effusion. Acute tendinous or ligamentous abnormal ities are identified. CONCLUSION: 1. Abnormal marrow enhancement and edema in the proximal and distal phalanx of the right great toe as above, most characteristic of osteomyelitis. 2. Patchy marrow edema throughout the foot, probably stress related change. There is mild pes planus. There is extensive subcutaneous edema. No acute tendon or ligament abnormalities are Brody Vargas MD on August 17, 2017 at 22:33 Board Certified Radiologist. This report was verified electronically.
[2017-08-18] VITALS: BP 123/61; PULSE 77; RESP 18; TEMP 97.2; O2SAT 100
[2017-08-18] MEDS: PIPERACIL-TAZO 3.375 GM PREMIX 50 ML IV SCH ×5 (00:28→21:21)
[2017-08-18 04:00] VITALS: BP 135/81; PULSE 87; RESP 18; TEMP 98; O2SAT 98
[2017-08-18] MEDS: VANCOMYCIN INJ 2,000 MG in SODIUM CHLORID 0.9% 500 ML INJ 500 ML IV SCH ×2 (05:39→18:47)
[2017-08-18] MEDS ORDERED: PHARMACY ORDERED LAB ONE (05:45)
[2017-08-18 08:00] VITALS: BP 159/94; PULSE 92; RESP 19; TEMP 97.3; O2SAT 99
[2017-08-18] MEDS: INSULIN ASPART SUPPLEMENTAL SCALE SQ SCH ×4 (08:00→21:00)
[2017-08-18] MEDS: SODIUM CHLORIDE 0.9% FLUSH 10 ML FLUSH IV FLUSH SCH ×2 (08:23→21:22)
[2017-08-18] MEDS: BENZTROPINE MESYLATE 2 MG TAB PO SCH ×2 (08:23→21:22)
[2017-08-18] MEDS: COLLAGENASE OINT 30 GM TUBE TOPICAL SCH (08:23)
--- NOTE | 2017-08-18 08:30 | PD.WCN.NOT ---
Wound Consult Description: Consult ordered by for Right foot Recommendation: Please defer to Podiatry wound care orders Additional Information: Patient not seen currently under the skilled care of [facility]. Parth Montenegro [facility] Aug 18, 2017 08:30
--- NOTE | 2017-08-18 11:15 | HHI.PR ---
Subjective Remarks Follow-up diabetic foot infection. Denies pain. Patient updated with MRI results of possible osteo-myelitis involving the great toe podiatry will be updated discussed with nursing Objective Vitals Vital Signs Date Time Temp Pulse Resp B/P (MAP) Pulse Ox O2 Delivery O2 Flow Rate FiO2 08/18/17 08:00 97.3 92 19 159/94 (115) 99 08/18/17 04:00 98.0 87 18 135/81 (99) 98 08/18/17 00:00 97.2 77 18 123/61 (81) 100 08/17/17 23:56 95 08/17/17 20:00 97.3 89 20 120/69 (86) 100 08/17/17 15:00 95.8 84 18 160/82 (108) 96 08/17/17 12:05 98.9 89 20 142/80 (100) 96 I/O 08/17/17 08/17/17 08/17/17 08/18/17 08/18/17 08/18/17 07:00 15:00 23:00 07:00 15:00 23:00 Intake Total 150 ml 50 ml 900 ml 1290 ml 500 ml Output Total 600 ml 1000 ml Balance -450 ml -950 ml 900 ml 1290 ml 500 ml Intake Oral 900 ml 240 ml IV Total 150 ml 50 ml 1050 ml 500 ml Output Urine Total 600 ml 1000 ml # Voids 0 6 # Bowel Movements 0 Result Diagram: 08/17/17 1015 08/17/17 1015 Imaging Last Impressions Foot MRI 08/17/17 0000 Signed Impressions: Service Date/Time: Thursday, August 17, 2017 21:29 - CONCLUSION: 1. Abnormal marrow enhancement and edema in the proximal and distal phalanx of the right great toe as above, most characteristic of osteomyelitis. 2. Patchy marrow edema throughout the foot, probably stress related change. There is mild pes planus. There is extensive subcutaneous edema. No acute tendon or ligament abnormalities are Brody Vargas MD Foot X-Ray 08/16/17 0000 Signed Impressions: Service Date/Time: Wednesday, August 16, 2017 17:16 - CONCLUSION: 1. Soft tissue swelling with pes planus deformity and moderate arthritic change of the midfoot. Brody Vargas MD Objective Remarks GENERAL: Well-developed and well-nourished in no acute respiratory distress. SKIN: Focused skin assessment warm/dry. CARDIOVASCULAR: Regular rate and rhythm RESPIRATORY: No accessory muscle use. Clear to auscultation. Breath sounds equal bilaterally. GASTROINTESTINAL: Abdomen soft, non-tender, nondistended. MUSCULOSKELETAL: The plantar surface the right foot has some demarcated skin with foul smell. There is a circular lesion over the plantar surface the right great foot, proximal to the right great toe as well as some mild skin changes to the distal aspect of the second, third, and fourth toe. This appears to be wet gangrene. Patient has great Doppler pulses of the dorsalis and posterior tibial pulse on the right foot. NEUROLOGICAL: Awake and alert. No obvious cranial nerve deficits. Motor grossly within normal limits. Normal speech. Nonfocal. Oriented 4. PSYCHIATRIC: Appropriate mood and affect; insight and judgment normal. Procedures none A/P Problem List: (1) Wet gangrene ICD Code: I96 - Gangrene, not elsewhere classified Status: Acute Assessment and Plan 1. Diabetic foot infection/right foot with wet gangrene and plantar ulcer with foul smell x-ray of the right foot reveals soft tissue swelling with pes planus deformity and osteoarthritic changes. MRI shows possible pneumonitis involving the right great toe continue Zosyn and Vancomycin and pain management. Wound care. Podiatry consulted. Follow-up SLICK 2. Gram-positive cocci and gram-negative rudy bacteremia. Continue above antibiotics and consult infectious disease 3. Hypertension on no home medicines. Monitor on clonidine and IV Vasotec 4. DM II the patient insist he is not diabetic. He is hyperglycemic follow-up hemoglobin A1C 6.8 and sliding scale, ADA diet. Diabetic education 5. Anxiety disorder/depression/Schizophrenia continue home medicines. Denies hallucinations DVT prophylaxis with Lovenox Demond Buchanan MD Aug 18, 2017 11:15
[2017-08-18 12:00] VITALS: BP 140/86; PULSE 86; RESP 18; TEMP 97.9; O2SAT 99
--- NOTE | 2017-08-18 12:34 | RADRPT ---
EXAM DATE/TIME: 08/17/2017 00:00 [facility] COMPARISON: No previous studies available for comparison. INDICATIONS : Wet gangrene right foot, right foot planter hallux ulceration TECHNIQUE: Four-cuff ankle and brachial pressures were obtained. Pulse cuff waveform tracings of the ankles were recorded, and ankle-brachial indices were calculated. PRESSURES (mmHg): Brachial (arm): Right iv site Left 136 Ankle: Right 140 Left 151 SLICK: Right 1.03 Left 1.11 TBI: Right 0.87 Left 0.84 PULSED CUFF WAVEFORMS: Demonstrate normal amplitude bilaterally. CONCLUSION: Unremarkable ankle brachial indices. Negro Farias MD on August 18, 2017 at 12:31 Board Certified Radiologist. This report was verified electronically.
--- NOTE | 2017-08-18 13:27 | PD.CONS ---
History of Present Illness Service Infectious disease Consult Requested By Dr. Buchanan Reason for Consult Evaluate patient with osteomyelitis Primary Care Physician No Primary Care Physician Diagnoses: History of Present Illness Patient seen and examined. Records reviewed. Patient is a 52-year-old male, presented to the hospital complaining of pain, drainage from his right foot. Patient's notice the ulcers on his foot probably more than 2 weeks ago. He does not remember how he got them. He went on vacation [facility], and while he was there he started noticing worsening of the ulcers in his right foot. He came back to [facility] about a week ago, and at that time he had noticed a foul odor coming from his foot. He has not had any fever or chills. Denies any respiratory complain or any GI complaint. The drainage and pain started getting worse as well as the persistence of the smell so he presented to the hospital for further evaluation and treatment. Patient has not been febrile since admission. MRI of the foot is showing suggestion of osteomyelitis in his right great toe. 2 initial blood cultures are negative. Repeat blood cultures were done on the same day, and one is growing gram- positive cocci, and the other one is growing gram-negative alex. Podiatry is evaluating the patient and planning on doing bedside debridement. Infectious disease consultation has been requested to evaluate the patient. Review of Systems Constitutional: DENIES: Fever, Chills Eyes: DENIES: Eye pain Ears, nose, mouth, throat: DENIES: Nasal discharge, Oral lesions, Throat pain, Sinus Pain Respiratory: DENIES: Cough, Shortness of breath Cardiovascular: DENIES: Chest pain, Palpitations, Dyspnea on Exertion Gastrointestinal: DENIES: Abdominal pain, Diarrhea, Nausea, Vomiting, Difficulty Swallowing Genitourinary: DENIES: Dysuria, Nocturia Musculoskeletal: DENIES: Back pain Integumentary: DENIES: Rash Hematologic/lymphatic: DENIES: Lymphadenopathy Neurologic: DENIES: Headache, Localized weakness Psychiatric: DENIES: Confusion Past Family Social History Allergies: Coded Allergies: No Known Allergies (Verified Allergy, Unknown, 08/16/17) Past Medical History Anxiety disorder Depression Hypertension Schizophrenia DM II Past Surgical History Knee surgery Active Ordered Medications Current Medications Medications (Trade) Dose Ordered Sig/Stanley Route Start Time Stop Time Status Last Admin (NS Flush) 2 ml UNSCH PRN IV FLUSH 08/16/17 17:15 08/16/17 17:42 (NS Flush) 2 ml BID IV FLUSH 08/16/17 21:00 08/17/17 22:25 (Tylenol) 650 mg Q4H PRN PO 08/16/17 17:15 (Zofran Inj) 4 mg Q6H PRN IVP 08/16/17 17:15 (Narcan Inj) 0.4 mg UNSCH PRN IV PUSH 08/16/17 17:15 (Senokot) 17.2 mg Q12H PRN PO 08/16/17 17:15 (Dulcolax Supp) 10 mg DAILY PRN RECTAL 08/16/17 17:15 (Lactulose Liq) 30 ml DAILY PRN PO 08/16/17 17:15 Pharmacy Profile Note 0 ml @ 0 mls/hr UNSCH OTHER 08/16/17 17:15 Piperacillin Sod/ Tazobactam Sod 50 ml @ 100 mls/hr Q6H IV 08/16/17 23:00 08/18/17 11:50 Vancomycin HCl 2000 mg/Sodium Chloride 520 ml @ 260 mls/hr Q12H IV 08/17/17 06:00 08/18/17 05:39 (Lovenox Inj) 40 mg Q24H SQ 08/16/17 20:00 08/17/17 22:25 (NovoLOG SUPPLEMENTAL SCALE) 1 ACHS SLIDING SCALE SQ 08/16/17 21:00 Potassium Chloride/Sodium Chloride 1,000 ml @ 100 mls/hr Q10H IV 08/17/17 09:30 08/17/17 11:00 (Cogentin) 2 mg BID PO 08/17/17 09:30 08/18/17 08:23 (Prolixin) 10 mg HS PO 08/17/17 21:00 08/17/17 22:35 (Vasotec Inj) 1.25 mg Q6H PRN IV PUSH 08/17/17 09:30 (Catapres) 0.1 mg Q6H PRN PO 08/17/17 09:30 (Santyl Oint) 1 applic DAILY TOPICAL 08/18/17 09:00 08/18/17 08:23 Miscellaneous Information SPECIFIC LAB TO BE DRAWN:VANCOMYCIN TROUGH DATE TO... ONCE ONCE .XX 08/20/17 05:45 08/20/17 05:46 Family History Unremarkable Social History Lives with his sister Smokes a pack a day of cigarettes Denies alcohol abuse Denies illicit drugs Physical Exam Vital Signs Vital Signs Date Time Temp Pulse Resp B/P (MAP) Pulse Ox O2 Delivery O2 Flow Rate FiO2 08/18/17 12:00 97.9 86 18 140/86 (104) 99 08/18/17 08:00 97.3 92 19 159/94 (115) 99 08/18/17 04:00 98.0 87 18 135/81 (99) 98 08/18/17 00:00 97.2 77 18 123/61 (81) 100 08/17/17 23:56 95 08/17/17 20:00 97.3 89 20 120/69 (86) 100 08/17/17 15:00 95.8 84 18 160/82 (108) 96 Physical Exam GENERAL: Patient is a well-nourished, well-developed male, awake and alert, not in respiratory distress. SKIN: Cool and dry. No generalized rash, no ecchymoses and no evidence of embolic lesions. HEAD: Atraumatic. Normocephalic. No temporal wasting, or tenderness. EYES: Omar conjunctiva. No petechia or hemorrhage. Pupils equal, round and reactive to light. Extraocular movements full and intact. No scleral icterus. No injection or drainage. EARS, NOSE AND THROAT: Nose without bleeding or purulent nasal discharge. No sinus tenderness. Mucous membranes pink and moist. No oral lesions noted. NECK: Trachea midline. Supple and not tender, no meningeal signs CARDIOVASCULAR: Regular rate and rhythm. No murmurs, rubs or gallops heard RESPIRATORY: Clear to auscultation. Breath sounds equal bilaterally. No rales , wheezing or rhonchi ABDOMEN: Soft, non-tender, nondistended. Bowel sounds present and normoactive. No guarding. No rebound. No organomegaly. EXTREMITIES: No clubbing, cyanosis. BLE - on leg he has dry skin on both ken with linear cracks . R foot - ulcer on plantar great toe, with some yellow drainage, and a smaller ulcer plantar aspect with yellow drainage, has (+ ) foul odor whole R foot. Some macerated skin in between his toes on R foot. There is erythema dorsum of R foot. No joint effusion, has good ROM. No calf tenderness. Well perfused and warm. NEUROLOGICAL: Awake and alert. Cranial nerves grossly intact. Motor grossly within normal limits. PSYCHIATRIC: Normal affect, calm and cooperative. LINE: No evidence of infection Laboratory Laboratory Tests Test 08/18/17 05:35 Vancomycin Level Trough 15.9 Date/Time Source Procedure Growth Status 08/16/17 17:25 Blood Peripheral Aerobic Blood Culture - Preliminary Gram Negative Alex Resulted 08/16/17 17:25 Blood Peripheral Anaerobic Blood Culture - Preliminary NO GROWTH IN 2 DAYS Resulted Result Diagram: 08/17/17 1015 08/17/17 1015 Imaging RADIOLOGY STUDIES/FILMS REVIEWED Foot MRI 08/17/17 0000 Signed Impressions: Service Date/Time: Thursday, August 17, 2017 21:29 - CONCLUSION: 1. Abnormal marrow enhancement and edema in the proximal and distal phalanx of the right great toe as above, most characteristic of osteomyelitis. 2. Patchy marrow edema throughout the foot, probably stress related change. There is mild pes planus. There is extensive subcutaneous edema. No acute tendon or ligament abnormalities are Brody Vargas MD Foot X-Ray 08/16/17 0000 Signed Impressions: Service Date/Time: Wednesday, August 16, 2017 17:16 - CONCLUSION: 1. Soft tissue swelling with pes planus deformity and moderate arthritic change of the midfoot. Brody Vargas MD Assessment and Plan Assessment and Plan IMPRESSION Sepsis, on admsision - has (+) BC (GPC and GNR) Cellulitis R foot Ulcers R foot, possible osteo R big toe Hx schizophrenia RECOMMENDATION Repeat 2 BC today Podiatry following patient Continue vancomycin Continue Zosyn Follow C/S Monitor progress I will follow along with you Thank you for this consultation Cayla Jackson MD Aug 18, 2017 13:27
[2017-08-18 16:00] VITALS: BP 130/81; PULSE 88; RESP 18; TEMP 97; O2SAT 99
[2017-08-18] MEDS ORDERED: LIDOCAINE HCL 1% 50 ML VIAL ONE (17:57)
[2017-08-18 20:00] VITALS: BP 156/94; PULSE 87; RESP 18; TEMP 97.3; O2SAT 96
[2017-08-18] MEDS: ENOXAPARIN SODIUM 40 MG/0.4 ML SYRINGE SQ SCH (21:21)
--- NOTE | 2017-08-18 21:45 | HHI.PR ---
Subjective Remarks Patient seen bedside. Consent signed to proceed with bedside debridement and bone biopsy right foot. Denies N,V,F,CH. States he has been trying to stay off of it. Objective Vital Signs Date Time Temp Pulse Resp B/P (MAP) Pulse Ox O2 Delivery O2 Flow Rate FiO2 08/18/17 20:00 97.3 87 18 156/94 (114) 96 08/18/17 19:06 Room Air 08/18/17 16:00 97.0 88 18 130/81 (97) 99 08/18/17 12:00 97.9 86 18 140/86 (104) 99 08/18/17 08:55 Room Air 08/18/17 08:00 97.3 92 19 159/94 (115) 99 08/18/17 04:00 98.0 87 18 135/81 (99) 98 08/18/17 00:00 97.2 77 18 123/61 (81) 100 08/17/17 23:56 95 I/O 08/17/17 08/17/17 08/17/17 08/18/17 08/18/17 08/18/17 07:00 15:00 23:00 07:00 15:00 23:00 Intake Total 150 ml 50 ml 900 ml 1290 ml 500 ml 1500 ml Output Total 600 ml 1000 ml Balance -450 ml -950 ml 900 ml 1290 ml 500 ml 1500 ml Intake Oral 900 ml 240 ml 1500 ml IV Total 150 ml 50 ml 1050 ml 500 ml Output Urine Total 600 ml 1000 ml # Voids 0 6 20 # Bowel Movements 0 3 Result Diagram: 08/17/17 1015 08/17/17 1015 Imaging Last Impressions Foot MRI 08/17/17 0000 Signed Impressions: Service Date/Time: Thursday, August 17, 2017 21:29 - CONCLUSION: 1. Abnormal marrow enhancement and edema in the proximal and distal phalanx of the right great toe as above, most characteristic of osteomyelitis. 2. Patchy marrow edema throughout the foot, probably stress related change. There is mild pes planus. There is extensive subcutaneous edema. No acute tendon or ligament abnormalities are Brody Vargas MD Foot X-Ray 08/16/17 0000 Signed Impressions: Service Date/Time: Wednesday, August 16, 2017 17:16 - CONCLUSION: 1. Soft tissue swelling with pes planus deformity and moderate arthritic change of the midfoot. Brody Vargas MD Other Results Microbiology Date/Time Source Procedure Growth Status 08/18/17 16:40 Blood Peripheral Aerobic Blood Culture Pending Received 08/18/17 16:40 Blood Peripheral Anaerobic Blood Culture Pending Received 08/18/17 18:36 Wound Other Gram Stain Pending Received 08/18/17 18:36 Wound Other Wound Culture Pending Received Objective Remarks Lower extremity physical exam: Vascular: Dorsalis pedis diminished, posterior tibial nonpalpable. Capillary refill time within normal limits to digits 5 bilateral foot. Edema present mildly to right foot. Neuro: Gross sensation intact to bilateral lower extremity. Pinpoint sensation decreased bilateral. No hyperalgesia noted to bilateral lower extremity Dermatology: Normal temperature and turgor to bilateral lower extremity. Right foot plantar hallux ulceration noted with fibro-granular base, hyperkeratotic skin edges, serous drainage, probe to bone, no exposed bone or tendon. Right foot submetatarsal 2 ulceration noted with fibro-granular base hyperkeratotic borders serous drainage, no probe to bone, and no exposed bone or tendon. Erythema noted to right foot. Positive malodor noted to right foot. Interdigital maceration noted to all interspaces of the right foot. Left foot lateral fifth metatarsal head fissure noted with hyperkeratotic borders, negative probe to bone, negative drainage, no acute signs of infection. Musculoskeletal: No tenderness to palpation to bilateral foot. Hammertoes noted to digits 2-5 to bilateral foot. Medications and IVs Current Medications Medications (Trade) Dose Ordered Sig/Stanley Route Start Time Stop Time Status Last Admin (NS Flush) 2 ml UNSCH PRN IV FLUSH 08/16/17 17:15 08/16/17 17:42 (NS Flush) 2 ml BID IV FLUSH 08/16/17 21:00 08/18/17 21:22 (Tylenol) 650 mg Q4H PRN PO 08/16/17 17:15 (Zofran Inj) 4 mg Q6H PRN IVP 08/16/17 17:15 (Narcan Inj) 0.4 mg UNSCH PRN IV PUSH 08/16/17 17:15 (Senokot) 17.2 mg Q12H PRN PO 08/16/17 17:15 (Dulcolax Supp) 10 mg DAILY PRN RECTAL 08/16/17 17:15 (Lactulose Liq) 30 ml DAILY PRN PO 08/16/17 17:15 Pharmacy Profile Note 0 ml @ 0 mls/hr UNSCH OTHER 08/16/17 17:15 Piperacillin Sod/ Tazobactam Sod 50 ml @ 100 mls/hr Q6H IV 08/16/17 23:00 08/18/17 21:21 Vancomycin HCl 2000 mg/Sodium Chloride 520 ml @ 260 mls/hr Q12H IV 08/17/17 06:00 08/18/17 18:47 (Lovenox Inj) 40 mg Q24H SQ 08/16/17 20:00 08/18/17 21:21 (NovoLOG SUPPLEMENTAL SCALE) 1 ACHS SLIDING SCALE SQ 08/16/17 21:00 Potassium Chloride/Sodium Chloride 1,000 ml @ 100 mls/hr Q10H IV 08/17/17 09:30 08/17/17 11:00 (Cogentin) 2 mg BID PO 08/17/17 09:30 08/18/17 21:22 (Prolixin) 10 mg HS PO 08/17/17 21:00 08/18/17 21:22 (Vasotec Inj) 1.25 mg Q6H PRN IV PUSH 08/17/17 09:30 (Catapres) 0.1 mg Q6H PRN PO 08/17/17 09:30 (Santyl Oint) 1 applic DAILY TOPICAL 08/18/17 09:00 08/18/17 08:23 Miscellaneous Information SPECIFIC LAB TO BE DRAWN:VANCOMYCIN TROUGH DATE TO... ONCE ONCE .XX 08/20/17 05:45 08/20/17 05:46 Assessment and Plan Assessment and Plan 51-year-old male with right foot plantar hallux ulceration and submetatarsal 2 ulceration; left lateral foot fissure Patient examined and evaluated with all questions answered MRI reviewed right foot concern for OM hallux ABIs reviewed WNL Bedside debridement right foot with bone biopsy Consent signed Nurse bedside for appropriate timeout confirming the correct patient, correct site procedure, correct medical record number Full thickness excisional debridement performed to ulcers of right plantar hallux and right submetatarsal 2. Full-thickness excisional debridement performed to subcutaneous tissue. Bone biopsy performed to right distal phalanx /proximal phalanx bone sent to pathology, as well as microbiology. Full-thickness excisional debridement performed to left lower extremity lateral plantar ulceration Deep culture obtained, sent for microbiology Patient is refusing amputation and would like IV antibiotics for possible osteomyelitis Will await bone biopsy results Santyl ordered to be applied to right foot ulcerations, begin applying Santyl to bilateral ulcerations Tia Rawls DPM Aug 18, 2017 21:45
[2017-08-19] VITALS (7 sets, daily range): BP systolic 140–163; BP diastolic 84–105; PULSE 81–93; RESP 15–20; TEMP 95.5–98; O2SAT 97–100
[2017-08-19] MEDS: NS + KCL 20 MEQ INJ 1,000 ML IV SCH ×2 (01:30→10:30)
[2017-08-19] MEDS: PIPERACIL-TAZO 3.375 GM PREMIX 50 ML IV SCH ×4 (04:24→21:44)
[2017-08-19] MEDS: VANCOMYCIN INJ 2,000 MG in SODIUM CHLORID 0.9% 500 ML INJ 500 ML IV SCH ×2 (04:25→21:44)
[2017-08-19] MEDS: INSULIN ASPART SUPPLEMENTAL SCALE SQ SCH ×4 (08:00→21:00)
[2017-08-19] MEDS: SODIUM CHLORIDE 0.9% FLUSH 10 ML FLUSH IV FLUSH SCH ×2 (09:00→21:43)
--- NOTE | 2017-08-19 10:19 | HHI.IDPN ---
Subjective Subjective Remarks Patient is a 52-year-old male, presented to the hospital complaining of pain, drainage from his right foot. Patient's notice the ulcers on his foot probably more than 2 weeks ago. He does not remember how he got them. He went on vacation [facility], and while he was there he started noticing worsening of the ulcers in his right foot. He came back to town about a week ago, and at that time he had noticed a foul odor coming from his foot. He has not had any fever or chills. Denies any respiratory complain or any GI complaint. The drainage and pain started getting worse as well as the persistence of the smell so he presented to the hospital for further evaluation and treatment. Patient has not been febrile since admission. MRI of the foot is showing suggestion of osteomyelitis in his right great toe. 2 initial blood cultures are negative. Repeat blood cultures were done on the same day, and one is growing gram- positive cocci, and the other one is growing gram-negative alex. Podiatry is evaluating the patient and planning on doing bedside debridement. Infectious disease consultation has been requested to evaluate the patient. Antibiotics Vancomycin Zosyn Current Medications Medications (Trade) Dose Ordered Sig/Stanley Route Start Time Stop Time Status Last Admin (NS Flush) 2 ml UNSCH PRN IV FLUSH 08/16/17 17:15 08/16/17 17:42 (NS Flush) 2 ml BID IV FLUSH 08/16/17 21:00 08/18/17 21:22 (Tylenol) 650 mg Q4H PRN PO 08/16/17 17:15 (Zofran Inj) 4 mg Q6H PRN IVP 08/16/17 17:15 (Narcan Inj) 0.4 mg UNSCH PRN IV PUSH 08/16/17 17:15 (Senokot) 17.2 mg Q12H PRN PO 08/16/17 17:15 (Dulcolax Supp) 10 mg DAILY PRN RECTAL 08/16/17 17:15 (Lactulose Liq) 30 ml DAILY PRN PO 08/16/17 17:15 Pharmacy Profile Note 0 ml @ 0 mls/hr UNSCH OTHER 08/16/17 17:15 Piperacillin Sod/ Tazobactam Sod 50 ml @ 100 mls/hr Q6H IV 08/16/17 23:00 08/19/17 04:24 Vancomycin HCl 2000 mg/Sodium Chloride 520 ml @ 260 mls/hr Q12H IV 08/17/17 06:00 08/19/17 04:25 (Lovenox Inj) 40 mg Q24H SQ 08/16/17 20:00 08/18/17 21:21 (NovoLOG SUPPLEMENTAL SCALE) 1 ACHS SLIDING SCALE SQ 08/16/17 21:00 Potassium Chloride/Sodium Chloride 1,000 ml @ 100 mls/hr Q10H IV 08/17/17 09:30 08/19/17 01:30 (Cogentin) 2 mg BID PO 08/17/17 09:30 08/18/17 21:22 (Prolixin) 10 mg HS PO 08/17/17 21:00 08/18/17 21:22 (Vasotec Inj) 1.25 mg Q6H PRN IV PUSH 08/17/17 09:30 (Catapres) 0.1 mg Q6H PRN PO 08/17/17 09:30 (Santyl Oint) 1 applic DAILY TOPICAL 08/18/17 09:00 08/18/17 08:23 Miscellaneous Information SPECIFIC LAB TO BE DRAWN:VANCOMYCIN TROUGH DATE TO... ONCE ONCE .XX 08/20/17 05:45 08/20/17 05:46 Lines PIV with no evidence of infection Past Medical History Anxiety disorder Depression Hypertension Schizophrenia DM II Past Surgical History Knee surgery Allergies: Coded Allergies: No Known Allergies (Verified Allergy, Unknown, 08/16/17) Objective . Vital Signs Date Time Temp Pulse Resp B/P (MAP) Pulse Ox O2 Delivery O2 Flow Rate FiO2 08/19/17 08:00 97.9 93 15 147/88 (107) 97 08/19/17 04:52 98.0 85 20 155/93 (113) 99 08/19/17 03:54 81 08/19/17 00:00 97.1 91 20 163/105 (124) 100 08/18/17 20:00 97.3 87 18 156/94 (114) 96 08/18/17 19:06 Room Air 08/18/17 16:00 97.0 88 18 130/81 (97) 99 08/18/17 12:00 97.9 86 18 140/86 (104) 99 . Laboratory Tests Test 08/17/17 10:15 White Blood Count 6.5 TH/MM3 Red Blood Count 4.35 MIL/MM3 Hemoglobin 11.9 GM/DL Hematocrit 34.9 % Mean Corpuscular Volume 80.3 FL Mean Corpuscular Hemoglobin 27.5 PG Mean Corpuscular Hemoglobin Concent 34.2 % Red Cell Distribution Width 16.5 % Platelet Count 278 TH/MM3 Mean Platelet Volume 7.6 FL Neutrophils (%) (Auto) 70.4 % Lymphocytes (%) (Auto) 19.9 % Monocytes (%) (Auto) 6.8 % Eosinophils (%) (Auto) 1.9 % Basophils (%) (Auto) 1.0 % Neutrophils # (Auto) 4.6 TH/MM3 Lymphocytes # (Auto) 1.3 TH/MM3 Monocytes # (Auto) 0.4 TH/MM3 Eosinophils # (Auto) 0.1 TH/MM3 Basophils # (Auto) 0.1 TH/MM3 CBC Comment DIFF FINAL Differential Comment Laboratory Tests Test 08/17/17 10:15 Blood Urea Nitrogen 4 MG/DL Creatinine 0.83 MG/DL Random Glucose 145 MG/DL Calcium Level 8.4 MG/DL Phosphorus Level 3.3 MG/DL Magnesium Level 2.2 MG/DL Sodium Level 138 MEQ/L Potassium Level 4.2 MEQ/L Chloride Level 103 MEQ/L Carbon Dioxide Level 30.2 MEQ/L Anion Gap 5 MEQ/L Estimat Glomerular Filtration Rate 118 ML/MIN Microbiology Date/Time Source Procedure Growth Status 08/18/17 16:40 Blood Peripheral Aerobic Blood Culture Pending Received 08/18/17 16:40 Blood Peripheral Anaerobic Blood Culture Pending Received 08/18/17 16:35 Blood Peripheral Aerobic Blood Culture Pending Received 08/18/17 16:35 Blood Peripheral Anaerobic Blood Culture Pending Received 08/16/17 17:25 Blood Peripheral Aerobic Blood Culture - Preliminary Gram Negative Alex Resulted 08/16/17 17:25 Blood Peripheral Anaerobic Blood Culture - Preliminary NO GROWTH IN 2 DAYS Resulted 08/16/17 17:15 Blood Peripheral Aerobic Blood Culture - Preliminary NO GROWTH IN 2 DAYS Resulted 08/16/17 17:15 Anaerobic Blood Culture - Preliminary Gram Positive Cocci Resulted 08/16/17 15:30 Blood Peripheral Aerobic Blood Culture - Preliminary NO GROWTH IN 2 DAYS Resulted 08/16/17 15:30 Blood Peripheral Anaerobic Blood Culture - Preliminary NO GROWTH IN 2 DAYS Resulted 08/16/17 15:20 Blood Peripheral Aerobic Blood Culture - Preliminary NO GROWTH IN 2 DAYS Resulted 08/16/17 15:20 Blood Peripheral Anaerobic Blood Culture - Preliminary NO GROWTH IN 2 DAYS Resulted 08/18/17 18:36 Wound Other Gram Stain - Final Resulted 08/18/17 18:36 Wound Other Wound Culture Pending Resulted 08/18/17 08:36 Tissue Foot Gram Stain - Final Resulted 08/18/17 08:36 Tissue Foot Wound Culture Pending Resulted Imaging Last Impressions Foot MRI 08/17/17 0000 Signed Impressions: Service Date/Time: Thursday, August 17, 2017 21:29 - CONCLUSION: 1. Abnormal marrow enhancement and edema in the proximal and distal phalanx of the right great toe as above, most characteristic of osteomyelitis. 2. Patchy marrow edema throughout the foot, probably stress related change. There is mild pes planus. There is extensive subcutaneous edema. No acute tendon or ligament abnormalities are Brody Vargas MD Foot X-Ray 08/16/17 0000 Signed Impressions: Service Date/Time: Wednesday, August 16, 2017 17:16 - CONCLUSION: 1. Soft tissue swelling with pes planus deformity and moderate arthritic change of the midfoot. Brody Vargas MD Physical Exam GENERAL: awake and alert, not in respiratory distress. SKIN: Cool and dry. No generalized rash, no ecchymoses and no evidence of embolic lesions. HEAD: Atraumatic. Normocephalic. No temporal wasting, or tenderness. EYES: [place] conjunctiva. No petechia or hemorrhage. Pupils equal, round and reactive to light. Extraocular movements full and intact. No scleral icterus. No injection or drainage. EARS, NOSE AND THROAT: Nose without bleeding or purulent nasal discharge. No sinus tenderness. Mucous membranes pink and moist. No oral lesions noted. NECK: Trachea midline. Supple and not tender, no meningeal signs CARDIOVASCULAR: Regular rate and rhythm. No murmurs, rubs or gallops heard RESPIRATORY: Clear to auscultation. Breath sounds equal bilaterally. No rales , wheezing or rhonchi ABDOMEN: Soft, non-tender, nondistended. Bowel sounds present and normoactive. No guarding. No rebound. No organomegaly. EXTREMITIES: No clubbing, cyanosis. BLE - on leg he has dry skin on both ken with linear cracks . R foot - has dry dressing with some dried bloody breakthrough bleeding on dressing over the great toe. L foot dressing is dry No odor. No joint effusion, has good ROM. No calf tenderness. Well perfused and warm. NEUROLOGICAL: Awake and alert. Cranial nerves grossly intact. Motor grossly within normal limits. PSYCHIATRIC: Normal affect, calm and cooperative. LINE: No evidence of infection Assessment & Plan Remarks IMPRESSION Sepsis, on admsision - has (+) BC (GPC and GNR) Cellulitis R foot Ulcers R foot, possible osteo R big toe Hx schizophrenia RECOMMENDATION Follow repeat BC Continue vancomycin Continue Zosyn Follow C/S Follow path Monitor progress Will determine course of Rx once work-up completed I will be off Aug 20- Other ID covering in my absence Cayla Jackson MD Aug 19, 2017 10:19
[2017-08-19] MEDS: BENZTROPINE MESYLATE 2 MG TAB PO SCH ×2 (10:26→21:42)
[2017-08-19] MEDS: COLLAGENASE OINT 30 GM TUBE TOPICAL SCH (10:27)
--- NOTE | 2017-08-19 11:08 | HHI.PR ---
Subjective Remarks Follow-up diabetic foot infection. Denies pain. Discussed with nursing and infectious disease Objective Vitals Vital Signs Date Time Temp Pulse Resp B/P (MAP) Pulse Ox O2 Delivery O2 Flow Rate FiO2 08/19/17 08:00 97.9 93 15 147/88 (107) 97 08/19/17 04:52 98.0 85 20 155/93 (113) 99 08/19/17 03:54 81 08/19/17 00:00 97.1 91 20 163/105 (124) 100 08/18/17 20:00 97.3 87 18 156/94 (114) 96 08/18/17 19:06 Room Air 08/18/17 16:00 97.0 88 18 130/81 (97) 99 08/18/17 12:00 97.9 86 18 140/86 (104) 99 I/O 08/18/17 08/18/17 08/18/17 08/19/17 08/19/17 08/19/17 07:00 15:00 23:00 07:00 15:00 23:00 Intake Total 1290 ml 500 ml 1500 ml Balance 1290 ml 500 ml 1500 ml Intake Oral 240 ml 1500 ml IV Total 1050 ml 500 ml # Voids 6 20 2 # Bowel Movements 3 1 Result Diagram: 08/17/17 1015 08/17/17 1015 Imaging Last Impressions Foot MRI 08/17/17 0000 Signed Impressions: Service Date/Time: Thursday, August 17, 2017 21:29 - CONCLUSION: 1. Abnormal marrow enhancement and edema in the proximal and distal phalanx of the right great toe as above, most characteristic of osteomyelitis. 2. Patchy marrow edema throughout the foot, probably stress related change. There is mild pes planus. There is extensive subcutaneous edema. No acute tendon or ligament abnormalities are Brody Vargas MD Foot X-Ray 08/16/17 0000 Signed Impressions: Service Date/Time: Wednesday, August 16, 2017 17:16 - CONCLUSION: 1. Soft tissue swelling with pes planus deformity and moderate arthritic change of the midfoot. Brody Vargas MD Objective Remarks GENERAL: Well-developed and well-nourished in no acute respiratory distress. SKIN: Focused skin assessment warm/dry. CARDIOVASCULAR: Regular rate and rhythm RESPIRATORY: No accessory muscle use. Clear to auscultation. Breath sounds equal bilaterally. GASTROINTESTINAL: Abdomen soft, non-tender, nondistended. MUSCULOSKELETAL: Dry dressing bilateral foot NEUROLOGICAL: Awake and alert. No obvious cranial nerve deficits. Motor grossly within normal limits. Normal speech. Nonfocal. Oriented 4. PSYCHIATRIC: Appropriate mood and affect; insight and judgment normal. Procedures Full thickness excisional debridement performed to ulcers of right plantar hallux and right submetatarsal 2. Full-thickness excisional debridement performed to subcutaneous tissue. Bone biopsy performed to right distal phalanx /proximal phalanx bone sent to pathology, as well as microbiology. Full-thickness excisional debridement performed to left lower extremity lateral plantar ulceration Deep culture obtained, sent for microbiology A/P Problem List: (1) Wet gangrene ICD Code: I96 - Gangrene, not elsewhere classified Status: Acute Assessment and Plan 1. Diabetic foot infection. MRI shows possible osteomyelitis involving the right great toe s/p Full thickness excisional debridement performed to ulcers of right plantar hallux and right submetatarsal 2. Full-thickness excisional debridement performed to subcutaneous tissue. Bone biopsy performed to right distal phalanx/proximal phalanx bone sent to pathology, as well as microbiology. Full-thickness excisional debridement performed to left lower extremity lateral plantar ulceration Deep culture obtained, sent for microbiology. Will continue Zosyn and Vancomycin and pain management. Wound care. SLICK unremarkable 2. Polymicrobial bacteremia with Pseudomonas luteola, gram-positive cocci and staph coag negative. Continue above antibiotics, infectious disease consulted 3. Hypertension on no home medicines. Monitor on clonidine and IV Vasotec. Discontinue IV fluids consider Lopressor if still significantly elevated 4. DM II the patient insist he is not diabetic. He is hyperglycemic follow-up hemoglobin A1C 6.8 and sliding scale, ADA diet. Diabetic education. Consult dietitian and consider Januvia 5. Anxiety disorder/depression/Schizophrenia continue home medicines. Denies hallucinations DVT prophylaxis with Lovenox Demond Buchanan MD Aug 19, 2017 11:08
[2017-08-19 12:03] LABS: CREATININE 0.98 MG/DL (0.60-1.30)
[2017-08-19] MEDS: ENOXAPARIN SODIUM 40 MG/0.4 ML SYRINGE SQ SCH (21:43)
[2017-08-20] VITALS: BP 134/75; PULSE 93; RESP 18; TEMP 97.1; O2SAT 99
[2017-08-20 04:00] VITALS: BP 152/88; PULSE 85; RESP 18; TEMP 97.1; O2SAT 100
[2017-08-20] MEDS: PIPERACIL-TAZO 3.375 GM PREMIX 50 ML IV SCH ×4 (04:31→21:42)
[2017-08-20 06:35] LABS: CREATININE 0.86 MG/DL (0.60-1.30)
[2017-08-20 08:00] VITALS: BP 146/78; PULSE 89; RESP 16; TEMP 97.3; O2SAT 99
[2017-08-20] MEDS: INSULIN ASPART SUPPLEMENTAL SCALE SQ SCH ×4 (08:00→21:00)
[2017-08-20] MEDS: BENZTROPINE MESYLATE 2 MG TAB PO SCH ×2 (08:27→21:39)
[2017-08-20] MEDS: COLLAGENASE OINT 30 GM TUBE TOPICAL SCH (08:28)
[2017-08-20] MEDS: SODIUM CHLORIDE 0.9% FLUSH 10 ML FLUSH IV FLUSH SCH ×2 (08:28→21:42)
[2017-08-20] MEDS ORDERED: PHARMACY ORDERED LAB ONE (10:45)
[2017-08-20] MEDS: VANCOMYCIN INJ 2,000 MG in SODIUM CHLORID 0.9% 500 ML INJ 500 ML IV SCH ×2 (11:13→21:52)
--- NOTE | 2017-08-20 11:18 | HHI.PR ---
Subjective Remarks Follow-up diabetic foot infection. Denies foot pain. Discussed with nursing Objective Vitals Vital Signs Date Time Temp Pulse Resp B/P (MAP) Pulse Ox O2 Delivery O2 Flow Rate FiO2 08/20/17 08:00 97.3 89 16 146/78 (100) 99 08/20/17 04:00 97.1 85 18 152/88 (109) 100 08/20/17 00:00 97.1 93 18 134/75 (94) 99 08/19/17 20:00 97.4 87 18 152/88 (109) 100 08/19/17 16:00 97.3 81 15 140/84 (102) 98 08/19/17 12:00 95.5 82 16 149/91 (110) 100 I/O 08/19/17 08/19/17 08/19/17 08/20/17 08/20/17 08/20/17 07:00 15:00 23:00 07:00 15:00 23:00 Intake Total 1000 ml 2300 ml 1050 ml 50 ml Balance 1000 ml 2300 ml 1050 ml 50 ml Intake Oral 1240 ml 480 ml IV Total 1000 ml 1060 ml 570 ml 50 ml # Voids 2 5 3 # Bowel Movements 1 1 0 Result Diagram: 08/17/17 1015 08/20/17 0457 Imaging Last Impressions Foot MRI 08/17/17 0000 Signed Impressions: Service Date/Time: Thursday, August 17, 2017 21:29 - CONCLUSION: 1. Abnormal marrow enhancement and edema in the proximal and distal phalanx of the right great toe as above, most characteristic of osteomyelitis. 2. Patchy marrow edema throughout the foot, probably stress related change. There is mild pes planus. There is extensive subcutaneous edema. No acute tendon or ligament abnormalities are Brody Vargas MD Foot X-Ray 08/16/17 0000 Signed Impressions: Service Date/Time: Wednesday, August 16, 2017 17:16 - CONCLUSION: 1. Soft tissue swelling with pes planus deformity and moderate arthritic change of the midfoot. Brody Vargas MD Objective Remarks GENERAL: Well-developed and well-nourished in no acute respiratory distress. SKIN: Focused skin assessment warm/dry. CARDIOVASCULAR: Regular rate and rhythm RESPIRATORY: No accessory muscle use. Clear to auscultation. Breath sounds equal bilaterally. GASTROINTESTINAL: Abdomen soft, non-tender, nondistended. MUSCULOSKELETAL: Dry dressing bilateral foot NEUROLOGICAL: Awake and alert. No obvious cranial nerve deficits. Motor grossly within normal limits. Normal speech. Nonfocal. Oriented 4. PSYCHIATRIC: Appropriate mood and affect; insight and judgment normal. Procedures Full thickness excisional debridement performed to ulcers of right plantar hallux and right submetatarsal 2. Full-thickness excisional debridement performed to subcutaneous tissue. Bone biopsy performed to right distal phalanx /proximal phalanx bone sent to pathology, as well as microbiology. Full-thickness excisional debridement performed to left lower extremity lateral plantar ulceration Deep culture obtained, sent for microbiology A/P Problem List: (1) Wet gangrene ICD Code: I96 - Gangrene, not elsewhere classified Status: Acute Assessment and Plan 1. Diabetic foot infection. Wound culture with gram-negative rudy. MRI shows possible osteomyelitis involving the right great toe s/p Full thickness excisional debridement performed to ulcers of right plantar hallux and right submetatarsal 2. Full-thickness excisional debridement performed to subcutaneous tissue. Bone biopsy performed to right distal phalanx/proximal phalanx bone sent to pathology, as well as microbiology. Full-thickness excisional debridement performed to left lower extremity lateral plantar ulceration Deep culture obtained, sent for microbiology. Will continue Zosyn and Vancomycin and pain management. Wound care. SLICK unremarkable 2. Polymicrobial bacteremia with Pseudomonas luteola, gram-positive cocci and staph coag negative. Continue above antibiotics, infectious disease consulted 3. Hypertension on no home medicines. Monitor on clonidine and IV Vasotec. Discontinue IV fluids consider Lopressor if still significantly elevated 4. DM II the patient insist he is not diabetic. He is hyperglycemic follow-up hemoglobin A1C 6.8 and sliding scale, ADA diet. Diabetic education. Consult dietitian and consider Januvia 5. Anxiety disorder/depression/Schizophrenia continue home medicines. Denies hallucinations DVT prophylaxis with Lovenox Demond Buchanan MD Aug 20, 2017 11:18
[2017-08-20 12:00] VITALS: BP 144/86; PULSE 84; RESP 16; TEMP 96.8; O2SAT 100
[2017-08-20 16:00] VITALS: BP 138/78; PULSE 88; RESP 16; TEMP 96.7; O2SAT 99
[2017-08-20 20:00] VITALS: BP 162/84; PULSE 81; RESP 18; TEMP 96; O2SAT 95
--- NOTE | 2017-08-20 20:51 | HHI.PR ---
Subjective Remarks Patient seen bedside. Denies N,V,F,CH. States he has been trying to stay off of his foot. Has no concerns or complaints at this time. Is resting comfortably and eating well. Objective Vital Signs Date Time Temp Pulse Resp B/P (MAP) Pulse Ox O2 Delivery O2 Flow Rate FiO2 08/20/17 20:00 96.0 81 18 162/84 (110) 95 08/20/17 16:00 96.7 88 16 138/78 (98) 99 08/20/17 12:00 96.8 84 16 144/86 (105) 100 08/20/17 08:28 Room Air 08/20/17 08:00 97.3 89 16 146/78 (100) 99 08/20/17 04:00 97.1 85 18 152/88 (109) 100 08/20/17 00:00 97.1 93 18 134/75 (94) 99 I/O 08/19/17 08/19/17 08/19/17 08/20/17 08/20/17 08/20/17 06:59 14:59 22:59 06:59 14:59 22:59 Intake Total 1000 ml 2300 ml 1050 ml 50 ml 2250 ml Balance 1000 ml 2300 ml 1050 ml 50 ml 2250 ml Intake Oral 1240 ml 480 ml 1990 ml IV Total 1000 ml 1060 ml 570 ml 50 ml 260 ml # Voids 2 5 3 5 # Bowel Movements 1 1 0 1 Result Diagram: 08/17/17 1015 08/20/17 0457 Imaging Last Impressions Foot MRI 08/17/17 0000 Signed Impressions: Service Date/Time: Thursday, August 17, 2017 21:29 - CONCLUSION: 1. Abnormal marrow enhancement and edema in the proximal and distal phalanx of the right great toe as above, most characteristic of osteomyelitis. 2. Patchy marrow edema throughout the foot, probably stress related change. There is mild pes planus. There is extensive subcutaneous edema. No acute tendon or ligament abnormalities are Brody Vargas MD Foot X-Ray 08/16/17 0000 Signed Impressions: Service Date/Time: Wednesday, August 16, 2017 17:16 - CONCLUSION: 1. Soft tissue swelling with pes planus deformity and moderate arthritic change of the midfoot. Brody Vargas MD Procedures s/p bedside debridement and irrigation with bone biopsy performed 08/18 Other Results Microbiology Date/Time Source Procedure Growth Status 08/18/17 16:40 Blood Peripheral Aerobic Blood Culture - Preliminary NO GROWTH IN 2 DAYS Resulted 08/18/17 16:40 Blood Peripheral Anaerobic Blood Culture - Preliminary NO GROWTH IN 2 DAYS Resulted 08/18/17 18:36 Wound Other Gram Stain - Final Resulted 08/18/17 18:36 Wound Other Wound Culture - Preliminary Resulted Objective Remarks Lower extremity physical exam: Vascular: Dorsalis pedis diminished, posterior tibial nonpalpable. Capillary refill time within normal limits to digits 5 bilateral foot. Edema present mildly to right foot. Neuro: Gross sensation intact to bilateral lower extremity. Pinpoint sensation decreased bilateral. No hyperalgesia noted to bilateral lower extremity Dermatology: Normal temperature and turgor to bilateral lower extremity. Right foot plantar hallux ulceration noted with granular base, serous drainage, no probe to bone, no exposed bone or tendon. Right foot submetatarsal 2 ulceration noted with granular base, serous drainage, no probe to bone, and no exposed bone or tendon. Erythema noted to right foot, improvement noted. Interdigital maceration noted to all interspaces of the right foot, improvement noted. Left foot lateral fifth metatarsal head fissure noted with granular base , negative probe to bone, negative drainage, no acute signs of infection. Musculoskeletal: No tenderness to palpation to bilateral foot. Hammertoes noted to digits 2-5 to bilateral foot. Medications and IVs Current Medications Medications (Trade) Dose Ordered Sig/Stanley Route Start Time Stop Time Status Last Admin (NS Flush) 2 ml UNSCH PRN IV FLUSH 08/16/17 17:15 08/16/17 17:42 (NS Flush) 2 ml BID IV FLUSH 08/16/17 21:00 08/20/17 08:28 (Tylenol) 650 mg Q4H PRN PO 08/16/17 17:15 (Zofran Inj) 4 mg Q6H PRN IVP 08/16/17 17:15 (Narcan Inj) 0.4 mg UNSCH PRN IV PUSH 08/16/17 17:15 (Senokot) 17.2 mg Q12H PRN PO 08/16/17 17:15 (Dulcolax Supp) 10 mg DAILY PRN RECTAL 08/16/17 17:15 (Lactulose Liq) 30 ml DAILY PRN PO 08/16/17 17:15 Pharmacy Profile Note 0 ml @ 0 mls/hr UNSCH OTHER 08/16/17 17:15 Piperacillin Sod/ Tazobactam Sod 50 ml @ 100 mls/hr Q6H IV 08/16/17 23:00 08/20/17 16:14 (Lovenox Inj) 40 mg Q24H SQ 08/16/17 20:00 08/19/17 21:43 (NovoLOG SUPPLEMENTAL SCALE) 1 ACHS SLIDING SCALE SQ 08/16/17 21:00 (Cogentin) 2 mg BID PO 08/17/17 09:30 08/20/17 08:27 (Prolixin) 10 mg HS PO 08/17/17 21:00 08/19/17 21:42 (Vasotec Inj) 1.25 mg Q6H PRN IV PUSH 08/17/17 09:30 (Catapres) 0.1 mg Q6H PRN PO 08/17/17 09:30 (Santyl Oint) 1 applic DAILY TOPICAL 08/18/17 09:00 08/20/17 08:28 Vancomycin HCl 2000 mg/Sodium Chloride 520 ml @ 260 mls/hr Q12H IV 08/19/17 23:00 08/20/17 11:13 Assessment and Plan Assessment and Plan 51-year-old male with right foot plantar hallux ulceration and submetatarsal 2 ulceration; left lateral foot fissure Patient examined and evaluated with all questions answered Bedside debridement right foot with bone biopsy performed Bone biopsy pathology results still pending Bone culture with NG to date Santyl to be applied to right foot ulcerations, continue applying Santyl to bilateral ulcerations Improvement noted to bilateral foot OK to DC per podiatry once bone pathology is resulted Would like to make patient will not require fpc IV abx therapy prior to discharge Patient will need home health care Tia Rawls DPM Aug 20, 2017 20:51
--- NOTE | 2017-08-20 20:53 | HHI.FF ---
Face to Face Verification Diagnosis: (1) Wet gangrene Home Health Nursing Order: Wound care and dressing changes Instructions: Please apply moist to dry dressing with Santyl daily. Okay to see patient 2-3 times per week. I have seen patient Franc RodasJr on 08/20/17. My clinical findings support the need for the requested home health care services because: Deconditioned w/ increased weakness Limited ability to care for self Need for psychosocial assistance Infection w/ risk of complications I certify that my clinical findings support that this patient is homebound because: Unsteady gait/balance Tia Rawls DPM Aug 20, 2017 20:53
[2017-08-20] MEDS: ENOXAPARIN SODIUM 40 MG/0.4 ML SYRINGE SQ SCH (21:41)
[2017-08-21] VITALS (7 sets, daily range): BP systolic 136–157; BP diastolic 78–96; PULSE 83–100; RESP 18–20; TEMP 97.2–98.2; O2SAT 96–99
[2017-08-21] MEDS: PIPERACIL-TAZO 3.375 GM PREMIX 50 ML IV SCH ×4 (05:35→22:55)
[2017-08-21] MEDS: INSULIN ASPART SUPPLEMENTAL SCALE SQ SCH ×4 (08:00→20:57)
[2017-08-21] MEDS: BENZTROPINE MESYLATE 2 MG TAB PO SCH ×2 (09:17→20:57)
[2017-08-21] MEDS: COLLAGENASE OINT 30 GM TUBE TOPICAL SCH (09:18)
[2017-08-21] MEDS: SODIUM CHLORIDE 0.9% FLUSH 10 ML FLUSH IV FLUSH SCH ×2 (09:20→20:56)
--- NOTE | 2017-08-21 10:04 | HHI.PR ---
Subjective Remarks f/u for osteomyelitis patient has no complaints. He is asking when he can go home. no fevers. patient refused insulin. he has no other complaints. Objective Vitals Vital Signs Date Time Temp Pulse Resp B/P (MAP) Pulse Ox O2 Delivery O2 Flow Rate FiO2 08/21/17 08:00 98.2 83 18 136/82 (100) 99 08/21/17 04:00 97.4 91 20 146/96 (113) 96 08/21/17 00:20 97.2 89 20 157/78 (104) 96 08/20/17 20:00 96.0 81 18 162/84 (110) 95 08/20/17 16:00 96.7 88 16 138/78 (98) 99 08/20/17 12:00 96.8 84 16 144/86 (105) 100 I/O 08/20/17 08/20/17 08/20/17 08/21/17 08/21/17 08/21/17 07:00 15:00 23:00 07:00 15:00 23:00 Intake Total 1050 ml 50 ml 2300 ml 1150 ml Balance 1050 ml 50 ml 2300 ml 1150 ml Intake Oral 480 ml 1990 ml 580 ml IV Total 570 ml 50 ml 310 ml 570 ml # Voids 3 5 4 # Bowel Movements 0 1 Result Diagram: 08/17/17 1015 08/20/17 0457 Procedures Full thickness excisional debridement performed to ulcers of right plantar hallux and right submetatarsal 2. Full-thickness excisional debridement performed to subcutaneous tissue. Bone biopsy performed to right distal phalanx /proximal phalanx bone sent to pathology, as well as microbiology. Full-thickness excisional debridement performed to left lower extremity lateral plantar ulceration Deep culture obtained, sent for microbiology Medications and IVs Current Medications Piperacillin Sod/ Tazobactam Sod 100 ml @ 200 mls/hr ONCE ONCE IV Last administered on 08/16/17at 17:42; Start 08/16/17 at 17:00; Stop 08/16/17 at 17:29 ; Status DC Vancomycin HCl 1000 mg/Sodium Chloride 250 ml @ 250 mls/hr ONCE ONCE IV ; Start 08/16/17 at 17:00; Stop 08/16/17 at 17:27; Status DC Sodium Chloride 1,000 ml @ 100 mls/hr Q10H IV Last administered on 08/17/17at 03:01; Start 08/16/17 at 17:01; Stop 08/17/17 at 09:20; Status DC Sodium Chloride (NS Flush) 2 ml UNSCH PRN IV FLUSH FLUSH AFTER USING IV ACCESS Last administered on 08/16/17at 17:42; Start 08/16/17 at 17:15 Sodium Chloride (NS Flush) 2 ml BID IV FLUSH Last administered on 08/21/17at 09: 20; Start 08/16/17 at 21:00 Acetaminophen (Tylenol) 650 mg Q4H PRN PO TEMP > 100.4; Start 08/16/17 at 17:15 Ondansetron HCl (Zofran Inj) 4 mg Q6H PRN IVP NAUSEA OR VOMITING; Start at 17:15 Naloxone HCl (Narcan Inj) 0.4 mg UNSCH PRN IV PUSH SEE LABEL COMMENTS; Start at 17:15 Sennosides (Senokot) 17.2 mg Q12H PRN PO Moderate constipation; Start 08/16/17 at 17:15 Bisacodyl (Dulcolax Supp) 10 mg DAILY PRN RECTAL SEVERE CONSITIPATION; Start at 17:15 Lactulose (Lactulose Liq) 30 ml DAILY PRN PO SEVERE CONSITIPATION; Start at 17:15 Pharmacy Profile Note 0 ml @ 0 mls/hr UNSCH OTHER ; Start 08/16/17 at 17:15 Piperacillin Sod/ Tazobactam Sod 50 ml @ 100 mls/hr Q6H IV Last administered on 08/21/17at 05:35; Start 08/16/17 at 23:00 Vancomycin HCl 2500 mg/Sodium Chloride 525 ml @ 210 mls/hr NOW ONCE IV ; Start 08/16/17 at 18:00; Stop 08/16/17 at 18:00; Status DC Vancomycin HCl 2000 mg/Sodium Chloride 520 ml @ 260 mls/hr Q12H IV Last administered on 08/19/17at 04:25; Start 08/17/17 at 06:00; Stop 08/19/17 at 15:57 ; Status DC Miscellaneous Information SPECIFIC LAB TO BE TRINITY... ONCE ONCE .XX Last administered on 08/18/17at 05:38; Start 08/18/17 at 05:45; Stop 08/18/17 at 05:46 ; Status DC Potassium Chloride (KCl) 40 meq ONCE ONCE PO Last administered on 08/16/17at 21 :36; Start 08/16/17 at 18:45; Stop 08/16/17 at 18:47; Status DC Potassium Chloride (KCl) 40 meq ONCE ONCE PO Last administered on 08/16/17at 22 :00; Start 08/16/17 at 22:00; Stop 08/16/17 at 22:01; Status DC Enoxaparin Sodium (Lovenox Inj) 40 mg Q24H SQ Last administered on 08/20/17at 21 :41; Start 08/16/17 at 20:00 Insulin Aspart (NovoLOG SUPPLEMENTAL SCALE) 1 ACHS SLIDING SCALE SQ ; Start at 21:00 Potassium Chloride/Sodium Chloride 1,000 ml @ 100 mls/hr Q10H IV Last administered on 08/19/17at 10:30; Start 08/17/17 at 09:30; Stop 08/19/17 at 16:11 ; Status DC Benztropine Mesylate (Cogentin) 2 mg BID PO Last administered on 08/21/17at 09: 17; Start 08/17/17 at 09:30 Fluphenazine HCl (Prolixin) 10 mg HS PO Last administered on 08/20/17at 21:40; Start 08/17/17 at 21:00 Enalaprilat (Vasotec Inj) 1.25 mg Q6H PRN IV PUSH SBP> OR = 180, DBP> OR = 100 ; Start 08/17/17 at 09:30 Clonidine (Catapres) 0.1 mg Q6H PRN PO SBP> OR = 180, DBP> OR = 100; Start at 09:30 Collagenase (Santyl Oint) 1 applic DAILY TOPICAL Last administered on at 09:18; Start 08/18/17 at 09:00 Gadodiamide (Omniscan Pf Inj) 19 ml STK-MED ONCE IVCONTRAST Last administered on 08/17/17at 22:14; Start 08/17/17 at 21:57; Stop 08/17/17 at 21:58; Status DC Miscellaneous Information SPECIFIC LAB TO BE DRAWN:VANCOMYCIN TROUGH DATE TO... ONCE ONCE .XX ; Start 08/20/17 at 10:45; Stop 08/20/17 at 10:46; Status DC Lidocaine HCl (Xylocaine 1% Inj (50 ml)) 50 ml STK-MED ONCE .ROUTE ; Start 08/18 at 17:57; Stop 08/18/17 at 17:58; Status DC Vancomycin HCl 2000 mg/Sodium Chloride 520 ml @ 260 mls/hr Q12H IV Last administered on 08/20/17at 21:52; Start 08/19/17 at 23:00 A/P Problem List: (1) Wet gangrene ICD Code: I96 - Gangrene, not elsewhere classified Status: Acute Assessment and Plan This is a 51 y/o uncontrolled diabetes p/w osteomyelitis Diabetic foot infection. - MRI shows possible osteomyelitis involving the right great toe s/p Full thickness excisional debridement performed to ulcers of right plantar hallux and right submetatarsal and full-thickness excisional debridement performed to subcutaneous tissue. Bone biopsy performed to right distal phalanx/proximal phalanx bone, Full-thickness excisional debridement performed to left lower extremity lateral plantar ulceration. on Zosyn and Vancomycin and pain management. Wound care. SLICK unremarkable -Polymicrobial bacteremia with Pseudomonas luteola, gram-positive cocci and staph coag negative. Continue above antibiotics, infectious disease consulted -pathology shows no inflammation or osteomyelitis. d/c with Dr. Alcala who will see patient to determine antibiotics recommendation. Hypertension -on no home medicines. Monitor on clonidine and IV Vasotec. start lisinopril. DM II -He is hyperglycemic follow-up hemoglobin A1C 6.8 and sliding scale, ADA diet. Diabetic education. Consult dietitian and consider Januvia. refusing insulin. education given. Anxiety disorder/depression/Schizophrenia -continue home medicines. Denies hallucinations DVT prophylaxis with Lovenox Discharge Planning pending final recommendations for ID. Jessenia Maurer MD Aug 21, 2017 10:04
--- NOTE | 2017-08-21 10:17 | HHI.FF ---
Face to Face Verification Diagnosis: (1) Osteomyelitis Physical Therapy Order: Evaluate and Treat, Improve ambulation, Strength and gait training Home Health Nursing Order: Medical education Signs/symptoms of disease process Wound care and dressing changes Instructions: Santyl to be applied to right foot ulcerations, continue applying Santyl to bilateral ulcerations I have seen patient Franc Rodas on 08/21/17. My clinical findings support the need for the requested home health care services because: Ltd mobility - disease progression I certify that my clinical findings support that this patient is homebound because: Post-op weakness Unsteady gait/balance Jessenia Maurer MD Aug 21, 2017 10:17
[2017-08-21] MEDS: LISINOPRIL 5 MG TAB PO SCH (11:00)
[2017-08-21] MEDS: VANCOMYCIN INJ 2,000 MG in SODIUM CHLORID 0.9% 500 ML INJ 500 ML IV SCH (11:21)
--- NOTE | 2017-08-21 16:23 | HHI.IDPN ---
Subjective Subjective Remarks ID X cover for Dr Fermin/Renetta Patient is a 52-year-old male, presented to the hospital complaining of pain, drainage from his right foot. Patient's notice the ulcers on his foot probably more than 2 weeks ago. He does not remember how he got them. He went on vacation [facility], and while he was there he started noticing worsening of the ulcers in his right foot. He came back to town about a week ago, and at that time he had noticed a foul odor coming from his foot. He has not had any fever or chills. Denies any respiratory complain or any GI complaint. The drainage and pain started getting worse as well as the persistence of the smell so he presented to the hospital for further evaluation and treatment. Patient has not been febrile since admission. MRI of the foot is showing suggestion of osteomyelitis in his right great toe. 2 initial blood cultures are negative. Repeat blood cultures were done on the same day, and one is growing gram- positive cocci, and the other one is growing gram-negative rudy. Podiatry is evaluating the patient and planning on doing bedside debridement. Infectious disease consultation has been requested to evaluate the patient. Pt is doing OK no fever foot clx growing anaerob? Blood clx with pseudomonas luteola, micrococcus and coag neg stapjh in different bottles path neg for osteo MRI with Abnormal marrow enhancement and edema in the proximal and distal phalanx of the right great toe as above, most characteristic of osteomyelitis. Antibiotics Vancomycin Zosyn Current Medications Medications (Trade) Dose Ordered Sig/Stanley Route Start Time Stop Time Status Last Admin (NS Flush) 2 ml UNSCH PRN IV FLUSH 08/16/17 17:15 08/16/17 17:42 (NS Flush) 2 ml BID IV FLUSH 08/16/17 21:00 08/18/17 21:22 (Tylenol) 650 mg Q4H PRN PO 08/16/17 17:15 (Zofran Inj) 4 mg Q6H PRN IVP 08/16/17 17:15 (Narcan Inj) 0.4 mg UNSCH PRN IV PUSH 08/16/17 17:15 (Senokot) 17.2 mg Q12H PRN PO 08/16/17 17:15 (Dulcolax Supp) 10 mg DAILY PRN RECTAL 08/16/17 17:15 (Lactulose Liq) 30 ml DAILY PRN PO 08/16/17 17:15 Pharmacy Profile Note 0 ml @ 0 mls/hr UNSCH OTHER 08/16/17 17:15 Piperacillin Sod/ Tazobactam Sod 50 ml @ 100 mls/hr Q6H IV 08/16/17 23:00 08/19/17 04:24 Vancomycin HCl 2000 mg/Sodium Chloride 520 ml @ 260 mls/hr Q12H IV 08/17/17 06:00 08/19/17 04:25 (Lovenox Inj) 40 mg Q24H SQ 08/16/17 20:00 08/18/17 21:21 (NovoLOG SUPPLEMENTAL SCALE) 1 ACHS SLIDING SCALE SQ 08/16/17 21:00 Potassium Chloride/Sodium Chloride 1,000 ml @ 100 mls/hr Q10H IV 08/17/17 09:30 08/19/17 01:30 (Cogentin) 2 mg BID PO 08/17/17 09:30 08/18/17 21:22 (Prolixin) 10 mg HS PO 08/17/17 21:00 08/18/17 21:22 (Vasotec Inj) 1.25 mg Q6H PRN IV PUSH 08/17/17 09:30 (Catapres) 0.1 mg Q6H PRN PO 08/17/17 09:30 (Santyl Oint) 1 applic DAILY TOPICAL 08/18/17 09:00 08/18/17 08:23 Miscellaneous Information SPECIFIC LAB TO BE DRAWN:VANCOMYCIN TROUGH DATE TO... ONCE ONCE .XX 08/20/17 05:45 08/20/17 05:46 Lines PIV with no evidence of infection Past Medical History Anxiety disorder Depression Hypertension Schizophrenia DM II Past Surgical History Knee surgery Allergies: Coded Allergies: No Known Allergies (Verified Allergy, Unknown, 08/16/17) Objective . Vital Signs Date Time Temp Pulse Resp B/P (MAP) Pulse Ox O2 Delivery O2 Flow Rate FiO2 08/21/17 16:00 97.6 88 18 146/91 (109) 98 08/21/17 12:00 98.0 85 18 152/91 (111) 99 08/21/17 08:00 98.2 83 18 136/82 (100) 99 08/21/17 04:00 97.4 91 20 146/96 (113) 96 08/21/17 00:20 97.2 89 20 157/78 (104) 96 08/20/17 20:00 96.0 81 18 162/84 (110) 95 . Laboratory Tests Test 08/20/17 04:57 Creatinine 0.86 MG/DL Estimat Glomerular Filtration Rate 113 ML/MIN Microbiology Date/Time Source Procedure Growth Status 08/18/17 16:40 Blood Peripheral Aerobic Blood Culture - Preliminary NO GROWTH IN 3 DAYS Resulted 08/18/17 16:40 Blood Peripheral Anaerobic Blood Culture - Preliminary NO GROWTH IN 3 DAYS Resulted 08/18/17 16:35 Blood Peripheral Aerobic Blood Culture - Preliminary NO GROWTH IN 3 DAYS Resulted 08/18/17 16:35 Blood Peripheral Anaerobic Blood Culture - Preliminary NO GROWTH IN 3 DAYS Resulted 08/18/17 18:36 Wound Other Gram Stain - Final Resulted 08/18/17 18:36 Wound Other Wound Culture - Preliminary Resulted Imaging Last Impressions Foot MRI 08/17/17 0000 Signed Impressions: Service Date/Time: Thursday, August 17, 2017 21:29 - CONCLUSION: 1. Abnormal marrow enhancement and edema in the proximal and distal phalanx of the right great toe as above, most characteristic of osteomyelitis. 2. Patchy marrow edema throughout the foot, probably stress related change. There is mild pes planus. There is extensive subcutaneous edema. No acute tendon or ligament abnormalities are Brody Vargas MD Foot X-Ray 08/16/17 0000 Signed Impressions: Service Date/Time: Wednesday, August 16, 2017 17:16 - CONCLUSION: 1. Soft tissue swelling with pes planus deformity and moderate arthritic change of the midfoot. Brody Vargas MD Physical Exam GENERAL: awake and alert, not in respiratory distress. SKIN: Cool and dry. No generalized rash, no ecchymoses and no evidence of embolic lesions. EYES: Short conjunctiva. No petechia or hemorrhage. Pupils equal, round and reactive to light. Extraocular movements full and intact. No scleral icterus. No injection or drainage. EARS, NOSE AND THROAT: nonthrush CARDIOVASCULAR: Regular rate and rhythm. No murmurs, rubs or gallops heard RESPIRATORY: Clear to auscultation. Breath sounds equal bilaterally. No rales , wheezing or rhonchi ABDOMEN: Soft, non-tender, nondistended. Bowel sounds present and normoactive. No guarding. No rebound. No organomegaly. EXTREMITIES: No clubbing, cyanosis. BLE - on leg he has dry skin on both ken with linear cracks . R foot - has dry dressing with some dried bloody breakthrough bleeding on dressing over the great toe. L foot dressing is dry + mild odor R foot R hallux ulv\cer, 2 plantar ulcers No joint effusion, has good ROM. No calf tenderness. Well perfused and warm. NEUROLOGICAL: Awake and alert. Cranial nerves grossly intact. Motor grossly within normal limits. PSYCHIATRIC: Normal affect, calm and cooperative. LINE: No evidence of infection Assessment & Plan Remarks IMPRESSION Sepsis, on admsision - has (+) BC (GPC and GNR) Cellulitis R foot R hallux osteo Ulcers R foot, possible osteo R big toe Hx schizophrenia Micrococcus/ psueomonas/ coag neg staph bacteremia - different bottles ? significance RECOMMENDATION Follow repeat BC dc vancomycin Continue Zosyn Follow C/S from the foot Monitor clx Nona Alcala MD Aug 21, 2017 16:23
[2017-08-21 19:21] LABS: CREATININE 0.89 MG/DL (0.60-1.30)
[2017-08-21] MEDS: ENOXAPARIN SODIUM 40 MG/0.4 ML SYRINGE SQ SCH (20:00)
[2017-08-22] VITALS: BP 143/78; PULSE 85; RESP 20; TEMP 97.8; O2SAT 99
[2017-08-22 04:39] VITALS: BP 125/88; PULSE 92; RESP 18; TEMP 97.9; O2SAT 98
[2017-08-22] MEDS: PIPERACIL-TAZO 3.375 GM PREMIX 50 ML IV SCH ×3 (05:26→17:33)
[2017-08-22 08:00] VITALS: BP 127/77; PULSE 83; RESP 18; TEMP 97.5; O2SAT 100
[2017-08-22] MEDS: INSULIN ASPART SUPPLEMENTAL SCALE SQ SCH ×4 (08:00→20:47)
[2017-08-22] MEDS: BENZTROPINE MESYLATE 2 MG TAB PO SCH ×2 (08:21→20:49)
[2017-08-22] MEDS: LISINOPRIL 5 MG TAB PO SCH (08:21)
[2017-08-22] MEDS: SODIUM CHLORIDE 0.9% FLUSH 10 ML FLUSH IV FLUSH SCH (08:21)
[2017-08-22] MEDS: COLLAGENASE OINT 30 GM TUBE TOPICAL SCH (08:22)
--- NOTE | 2017-08-22 09:53 | HHI.PR ---
Subjective Remarks Follow-up for osteomyelitis/infection Patient has no complaints. Very anxious to go home. He remains afebrile. Objective Vitals Vital Signs Date Time Temp Pulse Resp B/P (MAP) Pulse Ox O2 Delivery O2 Flow Rate FiO2 08/22/17 08:00 97.5 83 18 127/77 (94) 100 08/22/17 04:39 97.9 92 18 125/88 (100) 98 08/22/17 00:00 97.8 85 20 143/78 (99) 99 08/21/17 20:53 100 08/21/17 20:00 97.6 84 20 147/87 (107) 99 08/21/17 16:00 97.6 88 18 146/91 (109) 98 08/21/17 12:00 98.0 85 18 152/91 (111) 99 I/O 08/21/17 08/21/17 08/21/17 08/22/17 08/22/17 08/22/17 07:00 15:00 23:00 07:00 15:00 23:00 Intake Total 1150 ml 1500 ml 830 ml Balance 1150 ml 1500 ml 830 ml Intake Oral 580 ml 1500 ml 780 ml IV Total 570 ml 50 ml # Voids 4 4 4 # Bowel Movements 1 Result Diagram: 08/21/17 1706 Procedures Full thickness excisional debridement performed to ulcers of right plantar hallux and right submetatarsal 2. Full-thickness excisional debridement performed to subcutaneous tissue. Bone biopsy performed to right distal phalanx /proximal phalanx bone sent to pathology, as well as microbiology. Full-thickness excisional debridement performed to left lower extremity lateral plantar ulceration Deep culture obtained, sent for microbiology Medications and IVs Current Medications Piperacillin Sod/ Tazobactam Sod 100 ml @ 200 mls/hr ONCE ONCE IV Last administered on 08/16/17at 17:42; Start 08/16/17 at 17:00; Stop 08/16/17 at 17:29 ; Status DC Vancomycin HCl 1000 mg/Sodium Chloride 250 ml @ 250 mls/hr ONCE ONCE IV ; Start 08/16/17 at 17:00; Stop 08/16/17 at 17:27; Status DC Sodium Chloride 1,000 ml @ 100 mls/hr Q10H IV Last administered on 08/17/17at 03:01; Start 08/16/17 at 17:01; Stop 08/17/17 at 09:20; Status DC Sodium Chloride (NS Flush) 2 ml UNSCH PRN IV FLUSH FLUSH AFTER USING IV ACCESS Last administered on 08/16/17at 17:42; Start 08/16/17 at 17:15 Sodium Chloride (NS Flush) 2 ml BID IV FLUSH Last administered on 08/22/17at 08: 21; Start 08/16/17 at 21:00 Acetaminophen (Tylenol) 650 mg Q4H PRN PO TEMP > 100.4; Start 08/16/17 at 17:15 Ondansetron HCl (Zofran Inj) 4 mg Q6H PRN IVP NAUSEA OR VOMITING; Start at 17:15 Naloxone HCl (Narcan Inj) 0.4 mg UNSCH PRN IV PUSH SEE LABEL COMMENTS; Start at 17:15 Sennosides (Senokot) 17.2 mg Q12H PRN PO Moderate constipation; Start 08/16/17 at 17:15 Bisacodyl (Dulcolax Supp) 10 mg DAILY PRN RECTAL SEVERE CONSITIPATION; Start at 17:15 Lactulose (Lactulose Liq) 30 ml DAILY PRN PO SEVERE CONSITIPATION; Start at 17:15 Pharmacy Profile Note 0 ml @ 0 mls/hr UNSCH OTHER ; Start 08/16/17 at 17:15; Stop 08/21/17 at 16:24; Status DC Piperacillin Sod/ Tazobactam Sod 50 ml @ 100 mls/hr Q6H IV Last administered on 08/22/17at 05:26; Start 08/16/17 at 23:00 Vancomycin HCl 2500 mg/Sodium Chloride 525 ml @ 210 mls/hr NOW ONCE IV ; Start 08/16/17 at 18:00; Stop 08/16/17 at 18:00; Status DC Vancomycin HCl 2000 mg/Sodium Chloride 520 ml @ 260 mls/hr Q12H IV Last administered on 08/19/17at 04:25; Start 08/17/17 at 06:00; Stop 08/19/17 at 15:57 ; Status DC Miscellaneous Information SPECIFIC LAB TO BE TRINITY... ONCE ONCE .XX Last administered on 08/18/17at 05:38; Start 08/18/17 at 05:45; Stop 08/18/17 at 05:46 ; Status DC Potassium Chloride (KCl) 40 meq ONCE ONCE PO Last administered on 08/16/17at 21 :36; Start 08/16/17 at 18:45; Stop 08/16/17 at 18:47; Status DC Potassium Chloride (KCl) 40 meq ONCE ONCE PO Last administered on 08/16/17at 22 :00; Start 08/16/17 at 22:00; Stop 08/16/17 at 22:01; Status DC Enoxaparin Sodium (Lovenox Inj) 40 mg Q24H SQ Last administered on 08/20/17at 21 :41; Start 08/16/17 at 20:00 Insulin Aspart (NovoLOG SUPPLEMENTAL SCALE) 1 ACHS SLIDING SCALE SQ ; Start at 21:00 Potassium Chloride/Sodium Chloride 1,000 ml @ 100 mls/hr Q10H IV Last administered on 08/19/17at 10:30; Start 08/17/17 at 09:30; Stop 08/19/17 at 16:11 ; Status DC Benztropine Mesylate (Cogentin) 2 mg BID PO Last administered on 08/22/17at 08: 21; Start 08/17/17 at 09:30 Fluphenazine HCl (Prolixin) 10 mg HS PO Last administered on 08/21/17at 20:57; Start 08/17/17 at 21:00 Enalaprilat (Vasotec Inj) 1.25 mg Q6H PRN IV PUSH SBP> OR = 180, DBP> OR = 100 ; Start 08/17/17 at 09:30 Clonidine (Catapres) 0.1 mg Q6H PRN PO SBP> OR = 180, DBP> OR = 100; Start at 09:30 Collagenase (Santyl Oint) 1 applic DAILY TOPICAL Last administered on at 08:22; Start 08/18/17 at 09:00 Gadodiamide (Omniscan Pf Inj) 19 ml STK-MED ONCE IVCONTRAST Last administered on 08/17/17at 22:14; Start 08/17/17 at 21:57; Stop 08/17/17 at 21:58; Status DC Miscellaneous Information SPECIFIC LAB TO BE DRAWN:VANCOMYCIN TROUGH DATE TO... ONCE ONCE .XX ; Start 08/20/17 at 10:45; Stop 08/20/17 at 10:46; Status DC Lidocaine HCl (Xylocaine 1% Inj (50 ml)) 50 ml STK-MED ONCE .ROUTE ; Start 08/18 at 17:57; Stop 08/18/17 at 17:58; Status DC Vancomycin HCl 2000 mg/Sodium Chloride 520 ml @ 260 mls/hr Q12H IV Last administered on 08/21/17at 11:21; Start 08/19/17 at 23:00; Stop 08/21/17 at 16:24 ; Status DC Lisinopril (Prinivil) 5 mg DAILY PO Last administered on 08/22/17at 08:21; Start 08/21/17 at 11:00 A/P Problem List: (1) Wet gangrene ICD Code: I96 - Gangrene, not elsewhere classified Status: Acute Assessment and Plan This is a 51 y/o uncontrolled diabetes p/w osteomyelitis Diabetic foot infection. - MRI shows possible osteomyelitis involving the right great toe s/p Full thickness excisional debridement performed to ulcers of right plantar hallux and right submetatarsal and full-thickness excisional debridement performed to subcutaneous tissue. Bone biopsy performed to right distal phalanx/proximal phalanx bone, Full-thickness excisional debridement performed to left lower extremity lateral plantar ulceration. on Zosyn and Vancomycin and pain management. Wound care. SLICK unremarkable -Polymicrobial bacteremia with Pseudomonas luteola, gram-positive cocci and staph coag negative. Continue above antibiotics, infectious disease consulted -pathology shows no inflammation or osteomyelitis. Discussed case with Dr. Alcala who stated need to wait for final cultures and will determine home antibiotics for patient. Hypertension -on no home medicines. Monitor on clonidine and IV Vasotec. start lisinopril. DM II -He is hyperglycemic follow-up hemoglobin A1C 6.8 and sliding scale, ADA diet. Diabetic education. Consult dietitian and consider Januvia. refusing insulin. education given. Anxiety disorder/depression/Schizophrenia -continue home medicines. Denies hallucinations DVT prophylaxis with Lovenox Discharge Planning Pending final recommendations from infectious disease. Jessenia Maurer MD Aug 22, 2017 09:53
[2017-08-22 12:00] VITALS: BP 138/90; PULSE 94; RESP 18; TEMP 98.4; O2SAT 100
[2017-08-22 16:00] VITALS: BP 113/72; PULSE 90; RESP 18; TEMP 98; O2SAT 100
[2017-08-22 20:00] VITALS: BP 138/67; PULSE 87; RESP 18; TEMP 97.5; O2SAT 100
[2017-08-22] MEDS: ENOXAPARIN SODIUM 40 MG/0.4 ML SYRINGE SQ SCH (20:49)
[2017-08-23] VITALS: BP 123/69; PULSE 94; RESP 17; TEMP 97.6; O2SAT 97
[2017-08-23] MEDS: PIPERACIL-TAZO 3.375 GM PREMIX 50 ML IV SCH ×3 (00:20→11:44)
[2017-08-23] MEDS: SODIUM CHLORIDE 0.9% FLUSH 10 ML FLUSH IV FLUSH SCH ×3 (00:21→21:36)
[2017-08-23 04:00] VITALS: BP 99/64; PULSE 89; RESP 18; TEMP 97.8; O2SAT 97
[2017-08-23] MEDS: INSULIN ASPART SUPPLEMENTAL SCALE SQ SCH ×4 (08:00→21:00)
[2017-08-23 08:24] VITALS: BP 131/70; PULSE 79; RESP 17; TEMP 98.1; O2SAT 97
[2017-08-23] MEDS: COLLAGENASE OINT 30 GM TUBE TOPICAL SCH (08:39)
[2017-08-23] MEDS: LISINOPRIL 5 MG TAB PO SCH (08:39)
[2017-08-23] MEDS: BENZTROPINE MESYLATE 2 MG TAB PO SCH ×2 (08:39→21:33)
[2017-08-23 10:00] LABS: CREATININE 0.97 MG/DL (0.60-1.30)
--- NOTE | 2017-08-23 10:26 | HHI.PR ---
Subjective Remarks f/u for infection patient very anxious to go home. he has no complaints. he remains afebrile. Objective Vitals Vital Signs Date Time Temp Pulse Resp B/P (MAP) Pulse Ox O2 Delivery O2 Flow Rate FiO2 08/23/17 08:24 98.1 79 17 131/70 (90) 97 08/23/17 04:00 97.8 89 18 99/64 (76) 97 08/23/17 00:00 97.6 94 17 123/69 (87) 97 08/22/17 20:00 97.5 87 18 138/67 (90) 100 08/22/17 16:00 98.0 90 18 113/72 (86) 100 08/22/17 12:00 98.4 94 18 138/90 (106) 100 I/O 08/22/17 08/22/17 08/22/17 08/23/17 08/23/17 08/23/17 07:00 15:00 23:00 07:00 15:00 23:00 Intake Total 830 ml 1200 ml 240 ml Balance 830 ml 1200 ml 240 ml Intake Oral 780 ml 1200 ml 240 ml IV Total 50 ml # Voids 4 4 5 Result Diagram: 08/23/17 0817 Objective Remarks GENERAL: in NAD CARDIOVASCULAR: Regular rate and rhythm without murmurs, gallops, or rubs. RESPIRATORY: Breath sounds equal bilaterally. No accessory muscle use. GASTROINTESTINAL: Abdomen soft, non-tender, nondistended. Procedures Full thickness excisional debridement performed to ulcers of right plantar hallux and right submetatarsal 2. Full-thickness excisional debridement performed to subcutaneous tissue. Bone biopsy performed to right distal phalanx /proximal phalanx bone sent to pathology, as well as microbiology. Full-thickness excisional debridement performed to left lower extremity lateral plantar ulceration Deep culture obtained, sent for microbiology Medications and IVs Current Medications Piperacillin Sod/ Tazobactam Sod 100 ml @ 200 mls/hr ONCE ONCE IV Last administered on 08/16/17at 17:42; Start 08/16/17 at 17:00; Stop 08/16/17 at 17:29 ; Status DC Vancomycin HCl 1000 mg/Sodium Chloride 250 ml @ 250 mls/hr ONCE ONCE IV ; Start 08/16/17 at 17:00; Stop 08/16/17 at 17:27; Status DC Sodium Chloride 1,000 ml @ 100 mls/hr Q10H IV Last administered on 08/17/17at 03:01; Start 08/16/17 at 17:01; Stop 08/17/17 at 09:20; Status DC Sodium Chloride (NS Flush) 2 ml UNSCH PRN IV FLUSH FLUSH AFTER USING IV ACCESS Last administered on 08/16/17at 17:42; Start 08/16/17 at 17:15 Sodium Chloride (NS Flush) 2 ml BID IV FLUSH Last administered on 08/23/17at 08: 39; Start 08/16/17 at 21:00 Acetaminophen (Tylenol) 650 mg Q4H PRN PO TEMP > 100.4; Start 08/16/17 at 17:15 Ondansetron HCl (Zofran Inj) 4 mg Q6H PRN IVP NAUSEA OR VOMITING; Start at 17:15 Naloxone HCl (Narcan Inj) 0.4 mg UNSCH PRN IV PUSH SEE LABEL COMMENTS; Start at 17:15 Sennosides (Senokot) 17.2 mg Q12H PRN PO Moderate constipation; Start 08/16/17 at 17:15 Bisacodyl (Dulcolax Supp) 10 mg DAILY PRN RECTAL SEVERE CONSITIPATION; Start at 17:15 Lactulose (Lactulose Liq) 30 ml DAILY PRN PO SEVERE CONSITIPATION; Start at 17:15 Pharmacy Profile Note 0 ml @ 0 mls/hr UNSCH OTHER ; Start 08/16/17 at 17:15; Stop 08/21/17 at 16:24; Status DC Piperacillin Sod/ Tazobactam Sod 50 ml @ 100 mls/hr Q6H IV Last administered on 08/23/17at 04:57; Start 08/16/17 at 23:00 Vancomycin HCl 2500 mg/Sodium Chloride 525 ml @ 210 mls/hr NOW ONCE IV ; Start 08/16/17 at 18:00; Stop 08/16/17 at 18:00; Status DC Vancomycin HCl 2000 mg/Sodium Chloride 520 ml @ 260 mls/hr Q12H IV Last administered on 08/19/17at 04:25; Start 08/17/17 at 06:00; Stop 08/19/17 at 15:57 ; Status DC Miscellaneous Information SPECIFIC LAB TO BE TRINITY... ONCE ONCE .XX Last administered on 08/18/17at 05:38; Start 08/18/17 at 05:45; Stop 08/18/17 at 05:46 ; Status DC Potassium Chloride (KCl) 40 meq ONCE ONCE PO Last administered on 08/16/17at 21 :36; Start 08/16/17 at 18:45; Stop 08/16/17 at 18:47; Status DC Potassium Chloride (KCl) 40 meq ONCE ONCE PO Last administered on 08/16/17at 22 :00; Start 08/16/17 at 22:00; Stop 08/16/17 at 22:01; Status DC Enoxaparin Sodium (Lovenox Inj) 40 mg Q24H SQ Last administered on 08/22/17at 20 :49; Start 08/16/17 at 20:00 Insulin Aspart (NovoLOG SUPPLEMENTAL SCALE) 1 ACHS SLIDING SCALE SQ ; Start at 21:00 Potassium Chloride/Sodium Chloride 1,000 ml @ 100 mls/hr Q10H IV Last administered on 08/19/17at 10:30; Start 08/17/17 at 09:30; Stop 08/19/17 at 16:11 ; Status DC Benztropine Mesylate (Cogentin) 2 mg BID PO Last administered on 08/23/17at 08: 39; Start 08/17/17 at 09:30 Fluphenazine HCl (Prolixin) 10 mg HS PO Last administered on 08/22/17at 20:49; Start 08/17/17 at 21:00 Enalaprilat (Vasotec Inj) 1.25 mg Q6H PRN IV PUSH SBP> OR = 180, DBP> OR = 100 ; Start 08/17/17 at 09:30 Clonidine (Catapres) 0.1 mg Q6H PRN PO SBP> OR = 180, DBP> OR = 100; Start at 09:30 Collagenase (Santyl Oint) 1 applic DAILY TOPICAL Last administered on at 08:39; Start 08/18/17 at 09:00 Gadodiamide (Omniscan Pf Inj) 19 ml STK-MED ONCE IVCONTRAST Last administered on 08/17/17at 22:14; Start 08/17/17 at 21:57; Stop 08/17/17 at 21:58; Status DC Miscellaneous Information SPECIFIC LAB TO BE DRAWN:VANCOMYCIN TROUGH DATE TO... ONCE ONCE .XX ; Start 08/20/17 at 10:45; Stop 08/20/17 at 10:46; Status DC Lidocaine HCl (Xylocaine 1% Inj (50 ml)) 50 ml STK-MED ONCE .ROUTE ; Start 08/18 at 17:57; Stop 08/18/17 at 17:58; Status DC Vancomycin HCl 2000 mg/Sodium Chloride 520 ml @ 260 mls/hr Q12H IV Last administered on 08/21/17at 11:21; Start 08/19/17 at 23:00; Stop 08/21/17 at 16:24 ; Status DC Lisinopril (Prinivil) 5 mg DAILY PO Last administered on 08/23/17at 08:39; Start 08/21/17 at 11:00 A/P Problem List: (1) Wet gangrene ICD Code: I96 - Gangrene, not elsewhere classified Status: Acute Assessment and Plan This is a 51 y/o uncontrolled diabetes p/w osteomyelitis Diabetic foot infection. - MRI shows possible osteomyelitis involving the right great toe s/p Full thickness excisional debridement performed to ulcers of right plantar hallux and right submetatarsal and full-thickness excisional debridement performed to subcutaneous tissue. Bone biopsy performed to right distal phalanx/proximal phalanx bone, Full-thickness excisional debridement performed to left lower extremity lateral plantar ulceration. on Zosyn and Vancomycin and pain management. Wound care. SLICK unremarkable -Polymicrobial bacteremia with Pseudomonas luteola, gram-positive cocci and staph coag negative. Continue above antibiotics, infectious disease consulted -pathology shows no inflammation or osteomyelitis. Discussed case with Dr. Alcala who stated need to wait for final cultures and will determine home antibiotics for patient. Hypertension -on no home medicines. Monitor on clonidine and IV Vasotec. start lisinopril. DM II -He is hyperglycemic follow-up hemoglobin A1C 6.8 and sliding scale, ADA diet. Diabetic education. Consult dietitian and consider Januvia. refusing insulin. education given. Anxiety disorder/depression/Schizophrenia -continue home medicines. Denies hallucinations DVT prophylaxis with Lovenox Discharge Planning Pending final recommendations from infectious disease. Jessenia Maurer MD Aug 23, 2017 10:26
[2017-08-23 12:00] VITALS: BP 113/67; PULSE 83; RESP 19; TEMP 98.1; O2SAT 99
[2017-08-23 16:00] VITALS: BP 117/66; PULSE 91; RESP 18; TEMP 98.2; O2SAT 98
--- NOTE | 2017-08-23 16:05 | HHI.IDPN ---
Subjective Subjective Remarks ID X cover for Dr Fermin/Renetta doing OK afebrile Antibiotics Vancomycin Zosyn Current Medications Medications (Trade) Dose Ordered Sig/Stanley Route Start Time Stop Time Status Last Admin (NS Flush) 2 ml UNSCH PRN IV FLUSH 08/16/17 17:15 08/16/17 17:42 (NS Flush) 2 ml BID IV FLUSH 08/16/17 21:00 08/18/17 21:22 (Tylenol) 650 mg Q4H PRN PO 08/16/17 17:15 (Zofran Inj) 4 mg Q6H PRN IVP 08/16/17 17:15 (Narcan Inj) 0.4 mg UNSCH PRN IV PUSH 08/16/17 17:15 (Senokot) 17.2 mg Q12H PRN PO 08/16/17 17:15 (Dulcolax Supp) 10 mg DAILY PRN RECTAL 08/16/17 17:15 (Lactulose Liq) 30 ml DAILY PRN PO 08/16/17 17:15 Pharmacy Profile Note 0 ml @ 0 mls/hr UNSCH OTHER 08/16/17 17:15 Piperacillin Sod/ Tazobactam Sod 50 ml @ 100 mls/hr Q6H IV 08/16/17 23:00 08/19/17 04:24 Vancomycin HCl 2000 mg/Sodium Chloride 520 ml @ 260 mls/hr Q12H IV 08/17/17 06:00 08/19/17 04:25 (Lovenox Inj) 40 mg Q24H SQ 08/16/17 20:00 08/18/17 21:21 (NovoLOG SUPPLEMENTAL SCALE) 1 ACHS SLIDING SCALE SQ 08/16/17 21:00 Potassium Chloride/Sodium Chloride 1,000 ml @ 100 mls/hr Q10H IV 08/17/17 09:30 08/19/17 01:30 (Cogentin) 2 mg BID PO 08/17/17 09:30 08/18/17 21:22 (Prolixin) 10 mg HS PO 08/17/17 21:00 08/18/17 21:22 (Vasotec Inj) 1.25 mg Q6H PRN IV PUSH 08/17/17 09:30 (Catapres) 0.1 mg Q6H PRN PO 08/17/17 09:30 (Santyl Oint) 1 applic DAILY TOPICAL 08/18/17 09:00 08/18/17 08:23 Miscellaneous Information SPECIFIC LAB TO BE DRAWN:VANCOMYCIN TROUGH DATE TO... ONCE ONCE .XX 08/20/17 05:45 08/20/17 05:46 Lines PIV with no evidence of infection Past Medical History Anxiety disorder Depression Hypertension Schizophrenia DM II Past Surgical History Knee surgery Allergies: Coded Allergies: No Known Allergies (Verified Allergy, Unknown, 08/16/17) Objective . Vital Signs Date Time Temp Pulse Resp B/P (MAP) Pulse Ox O2 Delivery O2 Flow Rate FiO2 08/23/17 12:00 98.1 83 19 113/67 (82) 99 08/23/17 08:24 98.1 79 17 131/70 (90) 97 08/23/17 04:00 97.8 89 18 99/64 (76) 97 08/23/17 00:00 97.6 94 17 123/69 (87) 97 08/22/17 20:00 97.5 87 18 138/67 (90) 100 . Laboratory Tests Test 08/21/17 17:06 08/23/17 08:17 Creatinine 0.89 MG/DL 0.97 MG/DL Estimat Glomerular Filtration Rate 109 ML/MIN 99 ML/MIN Imaging Last Impressions Foot MRI 08/17/17 0000 Signed Impressions: Service Date/Time: Thursday, August 17, 2017 21:29 - CONCLUSION: 1. Abnormal marrow enhancement and edema in the proximal and distal phalanx of the right great toe as above, most characteristic of osteomyelitis. 2. Patchy marrow edema throughout the foot, probably stress related change. There is mild pes planus. There is extensive subcutaneous edema. No acute tendon or ligament abnormalities are Brody Vargas MD Foot X-Ray 08/16/17 0000 Signed Impressions: Service Date/Time: Wednesday, August 16, 2017 17:16 - CONCLUSION: 1. Soft tissue swelling with pes planus deformity and moderate arthritic change of the midfoot. Brody Vargas MD Physical Exam GENERAL: awake and alert, not in respiratory distress. SKIN: Cool and dry. No generalized rash, no ecchymoses and no evidence of embolic lesions. EXTREMITIES: dressing in place Assessment & Plan Remarks IMPRESSION Sepsis, on admsision - has (+) BC (GPC and GNR) Cellulitis R foot R hallux osteo Ulcers R foot, possible osteo R big toe Hx schizophrenia Micrococcus/ psueomonas/ coag neg staph bacteremia - different bottles ? significance RECOMMENDATION dc Zosynlevaquine + flagyl x 4 weeks monitor CBC CMP weekly Nona Alcala MD Aug 23, 2017 16:05
[2017-08-23] MEDS ORDERED: LISI-519 PO (16:41)
[2017-08-23] MEDS ORDERED: METR-1 PO (16:41)
[2017-08-23] MEDS ORDERED: LEVA750T9 PO (16:41)
[2017-08-23] MEDS: LEVOFLOXACIN 750 MG TAB PO SCH (16:41)
[2017-08-23 20:00] VITALS: BP 120/74; PULSE 92; RESP 18; TEMP 98.5; O2SAT 100
[2017-08-23] MEDS: metroNIDAZOLE 500 MG TAB PO SCH (21:33)
[2017-08-23] MEDS: ENOXAPARIN SODIUM 40 MG/0.4 ML SYRINGE SQ SCH (21:34)
[2017-08-24] VITALS: BP 119/6; PULSE 96; RESP 18; TEMP 98.1; O2SAT 99
[2017-08-24 04:00] VITALS: BP 115/5; PULSE 86; RESP 16; TEMP 98; O2SAT 98
[2017-08-24] MEDS: metroNIDAZOLE 500 MG TAB PO SCH (06:23)
[2017-08-24] MEDS: INSULIN ASPART SUPPLEMENTAL SCALE SQ SCH (08:00)
--- NOTE | 2017-08-24 08:40 | HHI.DS ---
Discharge Summary Admission Date Aug 16, 2017 at 17:40 Discharge Date: Aug 24, 2017 Admitting Diagnosis wet gangrene right foot, hyperglycemia (1) Wet gangrene ICD Code: I96 - Gangrene, not elsewhere classified Diagnosis: Principal Status: Acute Procedures Full thickness excisional debridement performed to ulcers of right plantar hallux and right submetatarsal 2. Full-thickness excisional debridement performed to subcutaneous tissue. Bone biopsy performed to right distal phalanx /proximal phalanx bone sent to pathology, as well as microbiology. Full-thickness excisional debridement performed to left lower extremity lateral plantar ulceration Deep culture obtained, sent for microbiology Brief History - From Admission This is a pleasant 51 y/o Male who came to Emergency room with right foot drainage, foul smell and pain, The patient states her last 3 weeks he's had some sores on the bottom of the right foot which have been draining, now producing a foul smell. The patient does have a history of schizophrenia, recently walked the [place], [place]. He then walked back to the [place], [place]. He denies any history of diabetes, gangrene, diabetic foot ulcers, or peripheral last carotid disease. He does note decreased hair growth to legs, but states that has been chronic since childhood. He denies any previous history of sores on the right foot, does have a previous history of sore the left foot which healed on its own. CBC/BMP: 08/23/17 0817 Significant Findings Laboratory Tests Test 08/21/17 17:06 08/23/17 08:17 Imaging Last Impressions Foot MRI 08/17/17 0000 Signed Impressions: Service Date/Time: Thursday, August 17, 2017 21:29 - CONCLUSION: 1. Abnormal marrow enhancement and edema in the proximal and distal phalanx of the right great toe as above, most characteristic of osteomyelitis. 2. Patchy marrow edema throughout the foot, probably stress related change. There is mild pes planus. There is extensive subcutaneous edema. No acute tendon or ligament abnormalities are Brody Vargas MD Foot X-Ray 08/16/17 0000 Signed Impressions: Service Date/Time: Wednesday, August 16, 2017 17:16 - CONCLUSION: 1. Soft tissue swelling with pes planus deformity and moderate arthritic change of the midfoot. Brody Vargas MD PE at Discharge GENERAL: in NAD CARDIOVASCULAR: Regular rate and rhythm without murmurs, gallops, or rubs. RESPIRATORY: Breath sounds equal bilaterally. No accessory muscle use. GASTROINTESTINAL: Abdomen soft, non-tender, nondistended. Pt update on day of discharge Follow-up for infection Patient has no complaints he is very anxious to go home. He remains afebrile. Discussed case with patient's nurse and case management. Per case management his insurance could should cover his medication. Hospital Course This is a 51 y/o uncontrolled diabetes p/w osteomyelitis Diabetic foot infection. - MRI shows possible osteomyelitis involving the right great toe s/p Full thickness excisional debridement performed to ulcers of right plantar hallux and right submetatarsal and full-thickness excisional debridement performed to subcutaneous tissue. Bone biopsy performed to right distal phalanx/proximal phalanx bone, Full-thickness excisional debridement performed to left lower extremity lateral plantar ulceration. Wound care was consulted and following. SLICK unremarkable -Wound cultures grew polymicrobial bacteremia with Pseudomonas luteola, gram- positive cocci and staph coag negative. pathology shows no inflammation or osteomyelitis. Patient was placed on Zosyn and vancomycin. Once pathology and wound cultures were finalized he was switched to Levaquin and Flagyl for 4 weeks. Patient told he will also need CBC and CMP done weekly while on this medication. Order placed in EMR system. -During hospitalization patient was also evaluated by physical therapist in which he was given crutches and surgical boots. Hypertension -Patient was started on lisinopril while hospitalized. DM II -He is hyperglycemic follow-up hemoglobin A1C 6.8 and sliding scale, ADA diet. Diabetic education. Consult dietitian and consider Januvia. refusing insulin. education given. Anxiety disorder/depression/Schizophrenia -continue home medicines. Denies hallucinations Pt Condition on Discharge: Good Discharge Disposition: Disch w/ Home Health Serv Discharge Time: > 30 minutes Discharge Instructions DIET: Follow Instructions for: Heart Healthy Diet Activities you can perform: Regular-No Restrictions Other Activity Instructions: as directed by physical therapist. Follow up Referrals: PCP Follow-up - 1 Week with [facility] - 1 Week @ [facility] with Tia Rawls DPM New Orders: CBC NO DIFF - 1 Week CBC NO DIFF - 2 Weeks CBC NO DIFF - 3 Weeks CBC NO DIFF - 4 Weeks COMP MET PROF (CMP) - 1 Week COMP MET PROF (CMP) - 2 Weeks COMP MET PROF (CMP) - 3 Weeks COMP MET PROF (CMP) - 4 Weeks New Medications: Levofloxacin (Levaquin) 750 Mg Tablet 750 MG PO DAILY for infection for 28 Days, TAB 0 Refills Lisinopril (Lisinopril) 5 Mg Tab 5 MG PO DAILY for hypertension, #30 TAB 0 Refills Metronidazole (Flagyl) 500 Mg Tab 500 MG PO Q8HR for infection for 28 Days, TAB 0 Refills Continued Medications: Benztropine (Benztropine) 0.5 Mg Tab 2 MG PO BID, #60 TAB 0 Refills Fluphenazine (Fluphenazine) 10 Mg Tab 10 MG PO Jessenia Maurer MD Aug 24, 2017 08:40
[2017-08-24] MEDS: SODIUM CHLORIDE 0.9% FLUSH 10 ML FLUSH IV FLUSH SCH (09:00)
[2017-08-24] MEDS: LISINOPRIL 5 MG TAB PO SCH (09:00)
[2017-08-24] MEDS: COLLAGENASE OINT 30 GM TUBE TOPICAL SCH (09:00)
[2017-08-24] MEDS: LEVOFLOXACIN 750 MG TAB PO SCH (09:20)
[2017-08-24] MEDS: BENZTROPINE MESYLATE 2 MG TAB PO SCH (09:20)
== END 2017-08-24 10:02 | disposition home health service (06) | DRG 854 ==
LOC: NEPC 13:59 → NEDA 17:40 → NEDH 23:42 → NEDA 08-17 01:03 → NEDH 08-17 01:20 → N07A 08-17 13:22
PROVIDERS: ADMIT Family Medicine; ATTEND Family Medicine
PROC: 0JBQ0ZZ Excision of Right Foot Subcutaneous Tissue and Fascia, Open Approach (ICD-10-PCS; principal; 2017-08-22)
PROC: 0QBQ0ZX Excision of Right Toe Phalanx, Open Approach, Diagnostic (ICD-10-PCS; 2017-08-22)
DX: A41.50 Gram-negative sepsis, unspecified (principal); I96 Gangrene, not elsewhere classified; E11.621 Type 2 diabetes mellitus with foot ulcer; E11.52 Type 2 diabetes mellitus with diabetic peripheral angiopathy with gangrene; E11.65 Type 2 diabetes mellitus with hyperglycemia; L97.518 Non-pressure chronic ulcer of other part of right foot with other specified severity; M86.9 Osteomyelitis, unspecified; L03.115 Cellulitis of right lower limb; E11.628 Type 2 diabetes mellitus with other skin complications; I10 Essential (primary) hypertension; F41.9 Anxiety disorder, unspecified; F32.9 Major depressive disorder, single episode, unspecified; F17.210 Nicotine dependence, cigarettes, uncomplicated; R00.0 Tachycardia, unspecified; M20.42 Other hammer toe(s) (acquired), left foot; M20.41 Other hammer toe(s) (acquired), right foot; M21.40 Flat foot [pes planus] (acquired), unspecified foot; E11.69 Type 2 diabetes mellitus with other specified complication; B96.89 Other specified bacterial agents as the cause of diseases classified elsewhere; M19.90 Unspecified osteoarthritis, unspecified site; F20.9 Schizophrenia, unspecified
CPT/HCPCS: 73620; 73720; 80048; 80053; 80061; 80202; 82565; 82607; 82948; 83036; 83605; 83735; 84100; 84439; 84443; 85025; 85610; 86403; 87040; 87070; 87077; 87176; 87186; 87205; 88305; 88307; 88311; 93922; 99285; A9579; E0113; J1650; J1815; J2543; J3370; J3480; J7030; J7040; L3260